=== PATIENT | female | born 1960 | race Caucasian/White ===

== ENCOUNTER 2020-04-24 07:27 | Outpatient (REF) | payer OTHER, SELFPAY ==
--- NOTE | 2020-04-24 07:31 | MM_ITS ---
EXAMINATION: MM SCREENING DIGITAL BREAST TOMOSYNTHESIS, BILATERAL CLINICAL INFORMATION: Screening. Asymptomatic. The lifetime risk of breast cancer based on the Tyrer-Cuzick Model is 5.6%. COMPARISON: Mammography: April 19, 2019 and studies dating back to December 05, 2011 TECHNIQUE: Digital breast tomosynthesis is performed in both the craniocaudal and mediolateral oblique views along with computer-aided detection (CAD). Synthesized 2D images are generated from the tomosynthesis. Exaggerated craniocaudal view left breast also performed. FINDINGS: The breasts are extremely dense, which lowers the sensitivity of mammography (ACR BI-RADS breast composition Category d). There are no significant masses, abnormal calcifications, or other abnormalities. MM/MM tomosynthesis screening BI IMPRESSION: There are no significant changes from prior study. ASSESSMENT: BI-RADS 1: Negative RECOMMENDATION: Routine annual mammography screening. This patient's information was entered into a reminder system with a target due date for their next mammogram.
== END 2020-04-24 07:28 | disposition home or self-care (01) ==
LOC: HO.MAMMO 07:27
PROVIDERS: PCP Internal Medicine; Visit Provider Internal Medicine
DX: Z12.31 Encounter for screening mammogram for malignant neoplasm of breast (principal)
CPT/HCPCS: 77063; 77067

== ENCOUNTER 2020-10-11 21:11 | Emergency (ER) | payer OTHER, SELFPAY ==
[2020-10-11 22:49] VITALS: BP 144/70; PULSE 93; RESP 18; TEMP 36.8; O2SAT 96; BMI 26.9
[2020-10-11 23:06] LABS: Appearance Urine HAZY; Color Urine YELLOW; Glucose Urine UA NEG (NEG); Leukocyte Esterase Urine 3+ (NEG); Nitrite Urine POS (NEG); Specific Gravity - Urine 1.015 (1.005-1.025); UACC Culture Trigger YES; Urine Blood 3+ (NEG); Urine Ketones NEG (NEG); Urine Protein 1+ MG/DL (NEG-TRACE)
[2020-10-11 23:12] LABS: Bacteria Urine 2+ /LPF; RBC Urine 30-49 /HPF (0); Squamous Epithelial Cell Urine 1+ /LPF
--- NOTE | 2020-10-11 23:43 | ED.FEMALEGU ---
HPI - Female Genitourinary General Chief complaint: Urogenital-Female Stated complaint: ?UTI Time Seen by Provider: 10/11/20 23:41 Source: patient Mode of arrival: ambulatory Limitations: no limitations History of Present Illness HPI Narrative: 60-year-old female came in for evaluation of dysuria, urinary frequency time 1 day. Patient declined any fever chills. Patient stated this is typical symptoms for UTI for her. Patient declined any abdominal pain, no nausea, no vomiting. Related Data Previous Rx's Medication Instructions Recorded cefuroxime axetil 500 mg PO Q12H #20 tab 10/11/20 Allergies Allergy/AdvReac Type Severity Reaction Status Date / Time amoxicillin [Amoxicillin] Allergy Intermediate HIVES Unverified 03/18/20 15:16 penicillin V Allergy Unknown hives ? Verified 01/17/19 00:00 prednisone [Prednisone] AdvReac Intermediate ALTERED Unverified 03/18/20 15:16 MENTAL STATUS, confusion Pt states no known allergy to Allergy Unknown Uncoded 01/17/19 00:00 Review of Systems Review of Systems: All other systems are reviewed and are negative Constitutional: Reports as per HPI and Reports no additional constitutional complaints Eyes: Reports as per HPI and Reports no additional eye complaints Reports system reviewed and no additional complaints, except as documented Cardiovascular: Reports as per HPI and Reports no additional cardiovascular complaints Respiratory: Reports as per HPI and Reports no additional respiratory complaints Gastrointestinal: Reports as per HPI and Reports no additional gastrointestinal complaints Genitourinary: Reports no additional female genitourinary complaints Musculoskeletal: Reports no additional musculoskeletal complaints Skin/Breast: Reports system reviewed and no additional complaints, except as docu Psychiatric: Reports no additional psychiatric complaints Endocrine: Reports no additional endocrine complaints Hematologic/Lymphatic: Reports no additional hematologic/lymphatic complaints Allergic/Immunologic: Reports no additional allergic/immunologic complaints Reports system reviewed and no additional complaints, except as documented and Reports Abnormal speech present FOR[facility]LY [facility], [facility] Past Medical History Medical History High cholesterol Patient denies medical problems Physical Exam Vital Signs: Vital Signs: Last Vital Signs Temp 98.3 F 10/11/20 22:49 Pulse 93 10/11/20 22:49 Resp 18 10/11/20 22:49 BP 144/70 H 10/11/20 22:49 Pulse Ox 96 10/11/20 22:49 Body Mass Index 26.9 Vital signs have been reviewed as appeared to be correct. Blood pressure normal. Heart rate normal. Respiration rate normal. Temperature normal. Oxygen saturation normal. Appearance: Alert. Oriented X3. No acute distress. Head: Normal external exam. Normocephalic. Atraumatic. No Calixto signs noted. No raccoon eyes noted Eyes: PERRLA. EOMI. Conjunctiva and sclera normal. Eyelids normal. ENT: TM's Normal. Pharynx normal. Uvula midline. Moist mucous membranes. No trismus noted. No drooling noted. No muffled voice noted. Neck: Normal inspection. Neck supple. FROM. No adenopathy. Thyroid Normal. No meningeal signs. No neck mass noted. CVS: Normal heart rate and rhythm. Heart sound normal. No murmurs noted. Pulses normal throughout. Respiratory: No respiratory distress. Painless inspiration. Breath sounds normal. No wheezes/rales/rhonchi noted. Chest nontender. No accessory muscle usage noted or decreased air movement noted. Abdomen: Soft and nontender. Bowel sounds normal in all 4 quadrants. No distention noted. No organomegaly noted. No visible injury noted. Back: No CVA tenderness. Full range of motion noted. Skin: Skin warm and dry. Normal skin color. Normal skin turgor. No rashes/lesions/lacerations noted. Extremities: No lower extremity edema. Extremities exhibit normal range of motion. Extremities nontender. Neuro: Oriented X 3. No motor deficit. No sensory deficit. Reflexes normal. Course Course Course Narrative: Assessment and plan. Simple noncomplicated UTI. Start the patient on cefuroxime, and encouraged to drink plenty of fluids. MDM - Female Genitourinary Lab Data Attestation: I reviewed the patient's lab results. Labs: Lab Results 10/11/20 Range/Units 22:57 Urine Color YELLOW Urine Appearance HAZY Urine pH 7.0 (5.0-8.0) Ur Specific Central 1.015 (1.005-1.025) Urine Protein 1+ H (NEG-TRACE) MG/DL Urine Glucose (UA) NEG (NEG) MG/DL Urine Ketones NEG (NEG) MG/DL Urine Blood 3+ H (NEG) Urine Nitrite POS H (NEG) Ur Leukocyte Esterase 3+ H (NEG) Urine RBC 30-49 H (0) /HPF Urine WBC 15-29 H (0-4) /HPF Ur Squamous Epith Cells 1+ /LPF Urine Bacteria 2+ /LPF Discharge Plan Discharge Clinical Impression: Urinary tract infection Patient Disposition: Home, Self-Care Instructions: Urinary Tract Infection in Women (ED) Prescriptions: New cefuroxime axetil 500 mg tablet 500 mg PO Q12H Qty: 20 RF: 0 Referrals: Maximilian Avalos MD [Primary Care Provider] - 2 days
== END 2020-10-12 00:40 | disposition home or self-care (01) ==
PROVIDERS: Emergency Provider Emergency Medicine; PCP Internal Medicine
DX: N39.0 Urinary tract infection, site not specified (principal)
CPT/HCPCS: 81001; 81003; 87086; 87088; 87186; 99283; 99284

== ENCOUNTER 2021-04-30 07:26 | Outpatient (REF) | payer OTHER, SELFPAY ==
--- NOTE | ~2021-04-30 | MM_ITS ---
EXAMINATION: MM SCREENING DIGITAL BREAST TOMOSYNTHESIS, BILATERAL CLINICAL INFORMATION: Screening. Asymptomatic. The lifetime risk of breast cancer based on the Tyrer-Cuzick Model is 4%. COMPARISON: Mammography: 04/24/2020, 04/19/2019, 03/15/2018, 02/04/2017 TECHNIQUE: Digital breast tomosynthesis is performed in both the craniocaudal and mediolateral oblique views along with computer-aided detection (CAD). Synthesized 2D images are generated from the tomosynthesis. FINDINGS: The breasts are extremely dense, which lowers the sensitivity of mammography (ACR BI-RADS breast composition Category d). There are no significant masses, abnormal calcifications, or other abnormalities. Parenchymal pattern is similar to prior studies. No significant changes. MM/MM tomosynthesis screening BI IMPRESSION: No mammographic evidence of malignancy. ASSESSMENT: BI-RADS 1: Negative RECOMMENDATION: Routine annual mammography screening. This patient's information was entered into a reminder system with a target due date for their next mammogram.
== END 2021-04-30 07:27 | disposition home or self-care (01) ==
LOC: HO.MAMMO 07:26
PROVIDERS: Visit Provider Internal Medicine
DX: Z12.31 Encounter for screening mammogram for malignant neoplasm of breast (principal)
CPT/HCPCS: 77063; 77067

== ENCOUNTER 2022-05-02 07:31 | Outpatient (REF) | payer OTHER, SELFPAY ==
--- NOTE | ~2022-05-02 | MM_ITS ---
EXAMINATION: MM SCREENING DIGITAL BREAST TOMOSYNTHESIS, BILATERAL CLINICAL INFORMATION: Screening. Asymptomatic. The lifetime risk of breast cancer based on the Tyrer-Cuzick Model is 4.9%. COMPARISON: Mammography: April 30, 2021 and studies dating back to January 18, 2016 TECHNIQUE: Digital breast tomosynthesis is performed in both the craniocaudal and mediolateral oblique views along with computer-aided detection (CAD). Synthesized 2D images are generated from the tomosynthesis. Additional bilateral exaggerated craniocaudal views performed. FINDINGS: The breasts are extremely dense, which lowers the sensitivity of mammography (ACR BI-RADS breast composition Category d). There are no significant masses, abnormal calcifications, or other abnormalities. MM/MM tomosynthesis screening BI IMPRESSION: No significant changes from prior exam. ASSESSMENT: BI-RADS 1: Negative RECOMMENDATION: Routine annual mammography screening. This patient's information was entered into a reminder system with a target due date for their next mammogram.
== END 2022-05-02 07:32 | disposition home or self-care (01) ==
LOC: HO.MAMMO 07:31
PROVIDERS: Visit Provider Internal Medicine
DX: Z12.31 Encounter for screening mammogram for malignant neoplasm of breast (principal)
CPT/HCPCS: 77063; 77067

== ENCOUNTER 2022-10-04 12:29 | Outpatient (REF) | payer OTHER, SELFPAY ==
--- NOTE | ~2022-10-04 | XR_ITS ---
EXAMINATION: XR FOOT, RIGHT CLINICAL INFORMATION: Displaced fracture of the fifth metatarsal COMPARISON: None available. TECHNIQUE: AP, lateral, and oblique views of the right foot. FINDINGS: Mildly displaced and comminuted fracture of the fifth metatarsal diaphysis. No carl bridging bony callus formation. Ankylosis of the second PIP joint. Degenerative changes of the second DIP joint with degenerative spurring. No tibiotalar joint effusion. Achilles tendon enthesopathy. XR/XR foot RT min 3V IMPRESSION: 1. Mildly displaced and comminuted fracture of the fifth metatarsal diaphysis. No carl bridging bony callus formation. 2. Degenerative changes of the foot and ankylosis of the second PIP joint.
== END 2022-10-04 12:30 | disposition home or self-care (01) ==
LOC: HO.HOSX 12:29
PROVIDERS: Visit Provider Physician Assistant
DX: S92.351A Displaced fracture of fifth metatarsal bone, right foot, initial encounter for closed fracture (principal)
CPT/HCPCS: 73630

== ENCOUNTER 2022-11-08 12:48 | Outpatient (REF) | payer OTHER, SELFPAY ==
--- NOTE | ~2022-11-08 | XR_ITS ---
EXAMINATION: XR FOOT, RIGHT CLINICAL INFORMATION: Displaced fifth metatarsal fracture. COMPARISON: Radiographs dated 10/04/2022. TECHNIQUE: AP, lateral, and oblique views of the right foot. FINDINGS: Bony alignment and mineralization are normal. There is stable alignment of a mildly displaced and comminuted fracture of the distal right fifth metatarsal shaft and neck portion. No significant callus formation is seen. There are stable degenerative changes of the second DIP joint, with vigorous spurring. No fracture, dislocation or joint effusion is seen. There is a small posterior calcaneal spur. No focal soft tissue swelling, gas or foreign body is seen. XR/XR foot RT min 3V IMPRESSION: There is stable alignment of a mildly displaced and comminuted fracture of the distal shaft and neck of the right fifth metatarsal. No new callus formation is noted.
== END 2022-11-08 12:49 | disposition home or self-care (01) ==
LOC: HO.HOSX 12:48
PROVIDERS: Visit Provider Physician Assistant
DX: S92.351D Displaced fracture of fifth metatarsal bone, right foot, subsequent encounter for fracture with routine healing (principal)
CPT/HCPCS: 73630

== ENCOUNTER 2022-11-14 06:54 | Outpatient (REF) | payer OTHER, SELFPAY ==
[2022-11-14 08:25] LABS: Alanine Aminotransferase 37 U/L (0-31); Albumin Level 4.4 g/dL (3.5-5.0); Alkaline Phosphatase 82 U/L (39-117); Anion Gap 13 (12-20); Aspartate Amino Transferase 29 U/L (5-31); Bilirubin Total 0.7 mg/dL (0.0-1.0); Blood Urea Nitrogen 13 mg/dL (9-16); Calcium 9.7 mg/dL (8.4-10.2); Carbon Dioxide 24 mmol/L (22-29); Chloride 109 mmol/L (96-108); Cholesterol 219 mg/dL; Estimated Glomerular Filt Rate > 60; Glucose Fasting 132 mg/dL (60-99); HDL Cholesterol 36 mg/dL; LDL Cholesterol Calculated 133 mg/dl; Potassium 4.4 mmol/L (3.3-5.1); Sodium 142 mmol/L (135-145); Total Protein 6.5 g/dL (6.5-8.0); Triglycerides 252 mg/dL
== END 2022-11-14 06:55 | disposition home or self-care (01) ==
LOC: HO.LAB 06:54
PROVIDERS: PCP Internal Medicine; Visit Provider Internal Medicine
DX: E78.2 Mixed hyperlipidemia (principal)
CPT/HCPCS: 36415; 80053; 80061

== ENCOUNTER 2022-12-20 08:27 | Outpatient (REF) | payer OTHER, SELFPAY ==
--- NOTE | ~2022-12-20 | XR_ITS ---
EXAMINATION: XR FOOT, RIGHT CLINICAL INFORMATION: Follow-up fifth metatarsal fracture. COMPARISON: Radiographs dated 11/08/2022. TECHNIQUE: AP, lateral, and oblique views of the right foot. FINDINGS: Bony alignment and mineralization are normal. There is continued stable alignment of a mildly displaced and comminuted fracture of the distal right fifth metatarsal shaft and neck. No significant callus formation is seen. There are moderately severe degenerative changes of the second metatarsophalangeal joint, with spurring. Again, there is fusion of the second proximal interphalangeal joint. No dislocation is seen. There is a small posterior calcaneal spur. No focal soft tissue swelling, gas or foreign body is seen. XR/XR foot RT min 3V IMPRESSION: There is stable alignment of a mildly displaced and comminuted fracture of the right fifth metatarsal distal shaft and neck. No significant new callus formation is noted.
== END 2022-12-20 08:28 | disposition home or self-care (01) ==
LOC: HO.HOSX 08:27
PROVIDERS: Visit Provider Physician Assistant
DX: S92.351D Displaced fracture of fifth metatarsal bone, right foot, subsequent encounter for fracture with routine healing (principal)
CPT/HCPCS: 73630

== ENCOUNTER → 2022-12-22 08:39 | Outpatient (BNVA) | payer OTHER, SELFPAY | PROVIDERS: PCP Internal Medicine; Visit Provider Physician Assistant | DX: M25.551 Pain in right hip (principal); M70.61 Trochanteric bursitis, right hip | CPT/HCPCS: 20610; J1040 ==

== ENCOUNTER 2023-01-09 10:43 | Outpatient (REF) | payer OTHER, SELFPAY ==
[2023-01-16 07:49] LABS: HPV 16 RNA DETECTED (NOT DETECTED); HPV mRNA E6/E7 rflx Detected (Not Detected)
== END 2023-01-09 10:44 | disposition home or self-care (01) ==
LOC: HO.LNP 10:43
PROVIDERS: PCP Internal Medicine; Visit Provider Advanced Practice Midwife
DX: Z01.419 Encounter for gynecological examination (general) (routine) without abnormal findings (principal); Z11.51 Encounter for screening for human papillomavirus (HPV)
CPT/HCPCS: 87624; 87625; 88142

== ENCOUNTER 2023-01-09 10:43 | Outpatient (AMB) | payer OTHER, SELFPAY ==
[2023-01-09 10:50] VITALS: BP 134/80; BMI 30.1
--- NOTE | 2023-01-09 10:50 | A.OFFVIS_ITS ---
Intake Vital Signs 01/09/23 10:50 Height 5 ft 9 in Weight 204 lb BMI 30.1 BP 134/80 Intake Visit Reasons: New Patient Annual Intake Note: Last pap 8-10 yrs normal hx per patient The patient agreed to use of a director biomedical engineering during this encounter. Scribed for ESVIN Cardona by Vannessa Pinzon director biomedical engineering, on 01/09/2023 at 11:08 am EST. Plant And Equipment Worker: Plant And Equipment Worker Present (Rachael) Allergies amoxicillin [Amoxicillin] Allergy (Intermediate, Verified 01/09/23 10:52) HIVES penicillin V Allergy (Unknown, Verified 01/09/23 10:52) hives ? prednisone [Prednisone] Adverse Reaction (Intermediate, Verified 01/09/23 10:52) ALTERED MENTAL STATUS, confusion HPI HPI Comments History of Present Illness Details She is a postmenopausal woman presenting for annual exam. Patient admits she tries to eat a healthy diet, and multivitamins. She stays active with exercise. Currently sexually active. Denies vaginal itching and irritation. STD screening offered; she declines. Denies family hx of breast, colon and ovarian cancer. Last pap smear 8-10 years per pt. Last mammogram 05/02/22. She is cutting down on tobacco use. UTD on colonoscopy. [facility] Medical History Chronic GERD Essential hypertension High cholesterol Surgical History History of blepharoplasty History of hammer toe correction History of tonsillectomy History of umbilical hernia repair Family History Mother Diabetes Hypertension Father Diabetes Brother Lung cancer Brother Cirrhosis of liver Substance use disorder Social History Housing: House Alcohol intake: current Alcohol intake frequency: a few times a month Alcohol type: beer Patient Tobacco Use Status: Current everyday Tobacco user Tobacco use type: Cigarette Cigarette Packs Per Day: 1 Cigarettes Per Day: 15 e-Cigarette/Vaping Use: Never Used Second Hand Smoke Exposure: No service: No Current occupational status: unemployed Current occupational exposures/hazards: No Sexual orientation: Straight/Heterosexual Gender identity: Female Cognitive needs: No Hearing needs: No Vision needs: Yes Female Reproductive History Menstrual Menopause type: natural Age of menopause: 40 Total pregnancies: 2 Full term: 2 Number of Living Children: 2 Date of Mammogram: 05/02/22 Physical Exam Vital Signs: Last Vital Signs BP 134/80 01/09/23 10:50 BMI result Body Mass Index 30.1 Const General: cooperative, healthy appearing, no acute distress, well developed and alert Orientation/consciousness: patient oriented x3 HEENT Head: Yes normal to inspection Eyes General: appearance normal, both eyes and all related structures Neck Neck: Yes normal visual inspection Thyroid: Thyroid normal Chest Chest palpation & inspection: normal inspection of the chest Breast/axilla inspection: normal inspection of the breasts (no puckering, dimpling, peau de orange, retraction, discharge, masses) Breast/axilla palpation: normal palpation of the breasts Resp Effort & Inspection: normal respiratory effort GI Inspection: Yes normal to inspection Palpation (GI): Soft to palpation (to palpation) Rectal Exam - Female: deferred General: Yes bladder normal to inspection External Female Exam: normal external appearance and normal appearance of the urethra Speculum Exam - Vagina: normal appearance of the vagina, normal palpation and vagina atrophic Speculum Exam - Cervix: normal appearance of the cervix, normal palpation and Other cervical findings present (bled slightly with pap) Bimanual exam- vagina & uterus: normal palpation and normal palpation Bimanual Exam- Adnexa, other: normal adnexae and no masses Skin General skin exam: no rashes or lesions noted Neuro General: patient oriented x3 Cognition (Neuro): normal cognition Extrem General: Yes normal to inspection Psych Attitude: cooperative Thought process: Normal thought process present Thought content: Normal thought content present Assessment & Plan Assessment & Plan (1) Encounter for well woman exam: Code(s): Z01.419 - Encounter for gynecological examination (general) (routine) without abnormal findings Plan: Discussed: Current recommendations for pap smears per ASCCP guidelines. Breast awareness and periodic self breast exams. Encouraged yearly mammograms. Maintaining a healthy lifestyle including a well balanced diet including Calcium and Vitamin D and routine exercise. Advised calcium/vit D, consider: Caltrate. Encouraged to cease smoking. Recommend lubricants, and/or Replans-moisturizer, if experience vaginal dryness. Contact office with any PMB. All of her questions and concerns were addressed to the best of my ability. RTO in 1 year for AG. Orders: Orders Pap Smear Today Z01.419 - Encounter for gynecological examination (general) (routine) without abnormal findings Coding Level of Care Code New Pt Prev Care 40-64y(39924) Diagnoses Encounter for well woman exam Z01.419
== END 2023-01-09 11:22 | disposition home or self-care (01) ==
LOC: HO.HWS 10:43
PROVIDERS: PCP Internal Medicine; Visit Provider Advanced Practice Midwife
DX: Z01.419 Encounter for gynecological examination (general) (routine) without abnormal findings (principal)
CPT/HCPCS: 99386

== ENCOUNTER 2023-01-30 07:49 | Outpatient (AMB) | payer OTHER, SELFPAY ==
--- NOTE | 2023-01-30 07:49 | A.OFFVIS_ITS ---
Intake Intake Visit Reasons: pap results Intake Note: cell # [phone] The patient agreed to use of a manager medical during this encounter. Scribed for ESVIN Cardona by Vannessa Pinzon, manager medical, on 01/30/2023 at 7:56 am EST. Allergies amoxicillin [Amoxicillin] Allergy (Intermediate, Verified 01/30/23 07:49) HIVES penicillin V Allergy (Unknown, Verified 01/30/23 07:49) hives ? prednisone [Prednisone] Adverse Reaction (Intermediate, Verified 01/30/23 07:49) ALTERED MENTAL STATUS, confusion HPI HPI Comments History of Present Illness Details D[employer]imity live video 7:56 am- 8:06 am. Phone Call due to Covid-19 Pandemic. Video was utilized. She presents via phone/live video to discuss pap results of abnormal findings. Reports having abnormal pap in the past and provider completed an office procedure years a go that involved a saline wash and scraping of cells. She did not have a follow up pap. She was offered to take estrogen at that time and she declined. [facility] Medical History (Updated 01/30/23 @ 08:06 by Vannessa Pinzon) Abnormal Pap smear of cervix Chronic GERD Essential hypertension High cholesterol Surgical History History of blepharoplasty History of hammer toe correction History of tonsillectomy History of umbilical hernia repair Family History Mother Diabetes Hypertension Father Diabetes Brother Lung cancer Brother Cirrhosis of liver Substance use disorder Social History Housing: House Alcohol intake: current Alcohol intake frequency: a few times a month Alcohol type: beer Patient Tobacco Use Status: Current everyday Tobacco user Tobacco use type: Cigarette Cigarette Packs Per Day: 1 Cigarettes Per Day: 15 e-Cigarette/Vaping Use: Never Used Second Hand Smoke Exposure: No service: No Current occupational status: unemployed Current occupational exposures/hazards: No Sexual orientation: Straight/Heterosexual Gender identity: Female Cognitive needs: No Hearing needs: No Vision needs: Yes Physical Exam Const General: cooperative, healthy appearing, comfortable, no acute distress, well developed, alert and awake Results Reviewed Results Reviewed: Status: DEP REF Collected: 01/09/23 Location: [facility] Received: 01/11/23 Interpretation General Category: Epithelial cell abnormality. Adequacy: ? Endocervical component present. Interpretation:? Atypical squamous cells of undetermined significance, rare. Elevated estrogen for patient's age and history. HPV mRNA E6/E7:? DETECTED This assay detects E6/E7 viral messenger RNA (mRNA) from 14 high-risk HPV types (16, 18, 31, 33, 35, 39, 45, 51, 52, 56, 58, 59, 66, 68) HPV Type 16 RNA:? DETECTED HPV Type 18/45 RNA: ? Not Detected Assessment & Plan Assessment & Plan (1) Encounter to discuss test results: Code(s): Z71.2 - Person consulting for explanation of examination or test findings Plan: Discussed: Pap findings of: ASCUS/HPV+, see above pathology note. Discussed colposcopy purpose, procedure and progression of abnormal pap smear. Offered external referral if desired being an employee here, she declined. Old office records not obtainable from that time frame. All of her questions and concerns were addressed to the best of my ability and shared decision making. She is agreeable to plan of care. Telehealth Telehealth Location of provider rendering services: practice address Location of patient: other Patient Identification confirmed using: Name, : Yes Telehealth method: video Patient verbally consented to treatment: Yes Patient verbally consented to billing insurance company: Yes Patient informed of any privacy concerns related to visit: Yes Coding Level of Care Code Tele New Pt Level 2 (43312) Diagnoses Encounter to discuss test results Z71.2
== END 2023-01-30 08:31 | disposition home or self-care (01) ==
LOC: HO.HWS 07:49
PROVIDERS: PCP Internal Medicine; Visit Provider Advanced Practice Midwife
DX: Z71.2 Person consulting for explanation of examination or test findings (principal)
CPT/HCPCS: 99212

== ENCOUNTER → 2023-01-30 07:49 | Outpatient (BNVA) | payer OTHER, SELFPAY | PROVIDERS: PCP Internal Medicine; Visit Provider Advanced Practice Midwife ==

== ENCOUNTER 2023-02-01 12:00 | Outpatient (RCR) | payer OTHER, SELFPAY ==
--- NOTE | 2023-01-04 16:20 | MHC.PT.EP ---
[facility] [place] [facility] [place] Office [address] [phone] F: [phone] F: [phone] F: [phone] F: [phone] Physical Therapy Plan of Care Date of Evaluation: Date of Surgery: Diagnosis: RIGHT hip trochanteric bursitis Assessment: Patient is a pleasant 62 y.o. female who is referred to PT by Jean-Claude Brooks PA-C, with Dx of RIGHT hip trochanteric bursitis. She had an injection to R hip which alleviated familiar pain, but with use of CAM boot on R with antalgic gait she started to develop pain in medial L knee which bothers her the most today. Patient impairments include pain, weakness, antalgic gait. Patient current functional limitations are getting up sit to stand, stair use, gardening, kneeling. Patient will benefit from skilled PT to address aforementioned impairments and functional limitations to meet established goals. Frequency and Duration: The patient will be seen 2x/weeks for 4 weeks Short Term Goals: 2 weeks Patient demonstrates consistency and independence with HEP to self manage symptoms. Patient is able to utilize taping to patella to improve alignment and reduce pain. Intermediate Goals: 4 weeks Patient presents with increased bilateral glute med strength 5/5 to be able to ascend/descend 2 flights of stairs reciprocally. Treatment Plan: Modalities to reduce pain, spasms and effusion. Manual therapy to restore motion and function. Therapeutic exercise to improve strength and flexibility. Neuromuscular re-education for posture and balance. Therapeutic activities to return to functional activities of daily living. Electronically signed by: Umberto Whipple, PT, DPT Please sign and return to therapist. Thank you for your referral.
--- NOTE | 2023-03-30 11:33 | MHC.PT.DC ---
[facility] [place] Office [place] Office [place] Office [address] Ava Martinez [address] [facility] [phone] F: [phone] F: [phone] F: [phone] F: [phone] Physical Therapy Discharge Report Diagnosis: RIGHT hip trochanteric bursitis Date of Surgery: Date of Evaluation: 01/04/23 Date of Discharge: 02/01/23 Treatments to Date: 7 Cancellations to Date: No Shows to Date: Discharge Status: Improved Function Independent with HEP Discharge Summary: Eunice did well with physical therapy interventions and showed independence with HEP to self manage her symptoms. She ceased attending PT on her own accord and is discharged from PT at this time. Electronically signed by: Umberto Whipple, PT, DPT Please sign and return to therapist. Thank you for your referral.
== END 2023-03-30 11:34 | disposition home or self-care (01) ==
LOC: HO.PT 12:00
PROVIDERS: PCP Internal Medicine; Visit Provider Physician Assistant
DX: M70.61 Trochanteric bursitis, right hip (principal)
CPT/HCPCS: 97110; 97112; 97140; 97161; 97530

== ENCOUNTER 2023-03-20 12:02 | Outpatient (REF) | payer OTHER, SELFPAY | END 2023-03-20 12:03 | disposition home or self-care (01) | LOC: HO.LNP 12:02 | PROVIDERS: PCP Internal Medicine; Visit Provider Obstetrics & Gynecology | DX: R87.610 Atypical squamous cells of undetermined significance on cytologic smear of cervix (ASC-US) (principal); R87.810 Cervical high risk human papillomavirus (HPV) DNA test positive | CPT/HCPCS: 57454; 88305; 88342; 88360 ==

== ENCOUNTER 2023-03-20 12:02 | Outpatient (AMB) | payer OTHER, SELFPAY ==
--- NOTE | 2023-03-20 12:04 | MHC.OFFVIS ---
Intake Vital Signs 03/20/23 12:09 Height 5 ft 9 in Weight 202 lb 13.204 oz BMI 29.9 BP 110/80 Intake Visit Reasons: Colposcopy Vmware Administrator Required: No Information Interpreted: non-clinical & clinical Delivery Crew Member: Delivery Crew Member Present (Elyssa Wan NAIK) Accompanied by: Self / Same As Patient Allergies amoxicillin [Amoxicillin] Allergy (Intermediate, Verified 03/20/23 12:10) HIVES penicillin V Allergy (Unknown, Verified 03/20/23 12:10) hives ? prednisone [Prednisone] Adverse Reaction (Intermediate, Verified 03/20/23 12:10) ALTERED MENTAL STATUS, confusion Post menopausal: Yes [facility] Medical History (Updated 03/20/23 @ 12:21 by Mike Saunders MD) Abnormal Pap smear of cervix Essential hypertension Chronic GERD High cholesterol Surgical History History of tonsillectomy History of blepharoplasty History of umbilical hernia repair History of hammer toe correction Family History Mother Diabetes Hypertension Father Diabetes Brother Lung cancer Brother Cirrhosis of liver Substance use disorder Social History Housing: House Alcohol intake: current Alcohol intake frequency: a few times a month Alcohol type: beer Patient Tobacco Use Status: Current everyday Tobacco user Tobacco use type: Cigarette Cigarette Packs Per Day: 1 Cigarettes Per Day: 15 e-Cigarette/Vaping Use: Never Used Second Hand Smoke Exposure: No service: No Current occupational status: unemployed Current occupational exposures/hazards: No Sexual orientation: Straight/Heterosexual Gender identity: Female Cognitive needs: No Hearing needs: No Vision needs: Yes Office Procedures Colposcopy Before the procedure was started discussed with the patient the procedure, alternatives & all the risks associated with the procedure (bleeding, infection, injury to vagina, bladder, vessels, possible need for transfusion with all its risks) then patient signed the consent UPT done in the office & negative Pap smear = ascus/HPV positive/HPV 16 positive Speculum inserted, acetic acid used Colposcopy done Transformation zone seen, acetowhite lesions identified at 4+6+8+11+12+1+3 o?clock, cervical biopsies taken from 4+6+8+11+12+1+3 o?clock, ECC done afterwards. Vaginoscopy of the upper vagina showed no evidence of any aceto-white lesions Monsel solution used for hemostasis. The patient tolerated well . At the end the patient was instructed to call if temp>100.4, abdominal pain, n/v, bleeding; The patient was given the following instructions: nothing per vagina, no intercourse or bath tub use. All questions answered the patient verbalized understanding. Instructed the patient to make an appointment in 2 weeks for follow-up This note was generated with a voice recognition program. Some errors may have been overlooked during the review of this note. Sometimes these errors may affect the content or meaning of a given sentence. [id number] of cervix including upper vagina with biopsy and ECC Procedure code (CPT) selection complete Assessment & Plan Assessment & Plan Orders: Orders AMB Colposcopy Today R87.610 - Atypical squamous cells of undetermined significance on cytologic smear of cervix (ASC-US), R87.810 - Cervical high risk human papillomavirus (HPV) DNA test positive Coding Level of Care Code Procedure Only CPT Codes Colposcopy - CPT: 28959-[id number] of cervix including upper vagina with biopsy and ECC ([id number])
[2023-03-20 12:09] VITALS: BP 110/80; BMI 29.9
== END 2023-03-20 12:22 | disposition home or self-care (01) ==
PROVIDERS: PCP Internal Medicine; Visit Provider Obstetrics & Gynecology
DX: R87.610 Atypical squamous cells of undetermined significance on cytologic smear of cervix (ASC-US) (principal); R87.810 Cervical high risk human papillomavirus (HPV) DNA test positive
CPT/HCPCS: 57454

== ENCOUNTER 2023-03-29 14:52 | Outpatient (AMB) | payer OTHER, SELFPAY ==
--- NOTE | 2023-03-29 14:55 | A.OFFVIS_ITS ---
Intake Vital Signs 03/29/23 14:59 Height 5 ft 9 in Weight 202 lb 13.204 oz BMI 29.9 BP 126/80 Intake Visit Reasons: COLPO results per Office Assistance Required: No Information Interpreted: non-clinical & clinical Nanoscience Technician: Nanoscience Technician Present Accompanied by: Self / Same As Patient Allergies amoxicillin [Amoxicillin] Allergy (Intermediate, Verified 03/29/23 14:59) HIVES penicillin V Allergy (Unknown, Verified 03/29/23 14:59) hives ? prednisone [Prednisone] Adverse Reaction (Intermediate, Verified 03/29/23 14:59) ALTERED MENTAL STATUS, confusion Is last menstrual period known: Yes Last menstrual period: 04/29/20 Post menopausal: Yes Patient : No Do you need a note to return to daycare/school/sports/work: Yes (for surgery on sunday) HPI HPI Comments History of Present Illness Details Presenting post colpo for follow-up. The patient is doing well with no complaints. The pathology showed the following: A. Endocervix, curettage: Scant superficial strips of endocervical epithelium within normal limits; mucoinflammatory material. B. Cervix, 1 o'clock, biopsy: Inflamed cervical transformation zone mucosa with reactive changes. C. Cervix, 3 o'clock, biopsy: - High-grade squamous intraepithelial le kurt (MINAL 3). - Background inflamed cervical transform ation zone mucosa. D. Cervix, 4 o'clock, biopsy: Inflamed endocervical tissue with squamous metaplasia; mucoinflammatory material. E. Cervix, 6 o'clock, biopsy: Inflamed cervical transformation zone mucosa with reactive changes. F. Cervix, 8 o'clock, biopsy: Mildly inflamed endocervical and squamous mucosa with reactive changes. G. Cervix, 11 o'clock, biopsy: Inflamed cervical transformation zone mucosa with reactive changes. H. Cervix, 12 o'clock, biopsy: - High-grade squamous intraepithelial le kurt (MINAL 3). - Background inflamed cervical transform ation zone mucosa [facility] Medical History Abnormal Pap smear of cervix Essential hypertension Chronic GERD High cholesterol Surgical History History of tonsillectomy History of blepharoplasty History of umbilical hernia repair History of hammer toe correction Family History Mother Diabetes Hypertension Father Diabetes Brother Lung cancer Brother Cirrhosis of liver Substance use disorder Social History Housing: House Alcohol intake: current Alcohol intake frequency: a few times a month Alcohol type: beer Patient Tobacco Use Status: Current everyday Tobacco user Tobacco use type: Cigarette Cigarette Packs Per Day: 1 Cigarettes Per Day: 15 e-Cigarette/Vaping Use: Never Used Second Hand Smoke Exposure: No service: No Current occupational status: unemployed Current occupational exposures/hazards: No Sexual orientation: Straight/Heterosexual Gender identity: Female Cognitive needs: No Hearing needs: No Vision needs: Yes Female Reproductive History Menstrual Date of last menstrual period: 04/29/20 Total pregnancies: 2 Full term: 2 Review of Systems Card Reports as per HPI and Reports no additional complaints Resp Reports as per HPI and Reports no additional complaints GI Reports as per HPI and Reports no additional complaints Reports as per HPI Physical Exam Vital Signs: Last Vital Signs BP 126/80 03/29/23 14:59 BMI result Body Mass Index 29.9 Const General: cooperative, healthy appearing and comfortable Chest Chest palpation & inspection: normal inspection of the chest and normal palpation of entire chest wall Breast/axilla inspection: normal inspection of the breasts and normal inspection of the axillae Breast/axilla palpation: normal palpation of the breasts, normal palpation of the axillae and no axillary lymphadenopathy Resp Effort & Inspection: normal respiratory effort Auscultation: clear to auscultation bilaterally Percussion: percussion normal Cardio Palpation: normal PMI Rate: regular rate Rhythm: regular rhythm Heart sounds: no murmurs and no rubs Peripheral pulses: Peripheral pulses 2+ throughout GI Inspection: Yes normal to inspection Palpation (GI): Soft to palpation, nontender, no guarding, not rigid and No hepatosplenomegaly present Percussion: Yes normal to percussion Auscultation: normal bowel sounds Rectal Exam - Female: deferred Assessment & Plan Assessment & Plan (1) MINAL III (cervical intraepithelial neoplasia grade III) with severe dysplasia: Code(s): D06.9 - Carcinoma in situ of cervix, unspecified Plan: Discussed with the patient the pathology results of the colposcopy biopsies & endocervical curettage ( severe dysplasia-MINAL 3). Discussed with the patient the sensitivity specificity, positive and negative predictive value in detecting cervical cancer in addition discussed the regression, persistence and progression rates. Addition discussed with the patient the risk of progression to cancer . Recommended excisional procedures, LEEP cone with post cone ECC. Discussed with the patient the procedure, its benefits and risks including bleeding, infection, possible need for blood transfusion with all its risk ( HIV, syphilis, Hepatitis, anaphylaxis shock, others..), injury to bladder, rectum, possible need for re-excision or hysterectomy for positive margins, potential need for hysterectomy. Also discussed the patient options of anesthesia either paracervical block versus IV sedation/MAC, prefers to proceed with IV sedation/MAC . All questions answered, the patient verbalized understanding and signed the consent. Instructions given to patient to schedule a postop appointment. Coding Level of Care Code Est Pt Level 3 (92511) Diagnoses MINAL III (cervical intraepithelial neoplasia grade III) with severe dysplasia D06.9
[2023-03-29 14:59] VITALS: BP 126/80; BMI 29.9
== END 2023-03-29 15:39 | disposition home or self-care (01) ==
PROVIDERS: PCP Internal Medicine; Visit Provider Obstetrics & Gynecology
DX: D06.9 Carcinoma in situ of cervix, unspecified (principal)
CPT/HCPCS: 99213

== ENCOUNTER → 2023-03-29 14:52 | Outpatient (BNVA) | payer OTHER, SELFPAY | PROVIDERS: PCP Internal Medicine; Visit Provider Obstetrics & Gynecology ==

== ENCOUNTER 2023-04-06 10:54 | Day surgery (SDC) | payer OTHER, SELFPAY ==
[2023-04-06 11:22] VITALS: BMI 28.8
[2023-04-06 11:37] VITALS: BP 147/81; PULSE 89; RESP 18; TEMP 36.6; O2SAT 97
--- NOTE | 2023-04-06 12:07 | MHC.SHP ---
Pre-Procedural Eval Section A Date of Service: 04/06/23 The patient is an INPATIENT: No Changes since office visit: No Cold of Flu in the past 2 weeks, No New Medical Problems, No Changes in Medication and No Patient answered all questions The History & Physical has been completed within 30 days and I have reviewed it.: Yes Section B Chief Complaint: Carcinoma in situ of cervix, unspecified Allergies: Allergies Allergy/AdvReac Type Severity Reaction Status Date / Time amoxicillin [Amoxicillin] Allergy Intermediate HIVES Verified 03/29/23 14:59 penicillin V Allergy Unknown hives ? Verified 03/29/23 14:59 prednisone [Prednisone] AdvReac Intermediate ALTERED Verified 03/29/23 14:59 MENTAL STATUS, confusion Plan Diagnosis/Plan: Unchanged I have reviewed the history and physical and performed a pertinent physical examination on my patient. No changes have occurred unless specified. Time Spent With Patient Time: Total time managing care of this patient today ____ minutes.
--- NOTE | 2023-04-06 12:13 | HO.ANESPROP2 ---
HPI - Anesthesia Eval Consult details Narrative: for LEEP PMFSH Active Problems Active Problems: All Active Problems (Updated 03/29/23 @ 15:37 by Mike Saunders MD) MINAL III (cervical intraepithelial neoplasia grade III) with severe dysplasia (Acute) ASCUS with positive high risk HPV cervical (Acute) Abnormal Pap smear of cervix (Acute) Chronic GERD (Acute) Essential hypertension (Acute) Trochanteric bursitis, right hip (Acute) Hyperlipidemia (Acute) Impaired glucose tolerance (Acute) Fracture of fifth metatarsal bone (Acute) Smoker (Acute) Elevated blood pressure reading without diagnosis of hypertension (Acute) Screening for cervical cancer (Acute) Overweight (Acute) Tubular adenoma (Acute) Mixed hyperlipidemia (Acute) Past Medical History Medical History Abnormal Pap smear of cervix Essential hypertension Chronic GERD High cholesterol Family History Family History Mother Diabetes Hypertension Father Diabetes Brother Lung cancer Brother Cirrhosis of liver Substance use disorder Family history of problems with anesthesia: No Surgical History Surgical History History of tonsillectomy History of blepharoplasty History of umbilical hernia repair History of hammer toe correction History of Problems with Anesthesia: No Social History Social History Housing: House Alcohol intake: current Alcohol intake frequency: a few times a month Alcohol type: beer Patient Tobacco Use Status: Current everyday Tobacco user Tobacco use type: Cigarette Cigarette Packs Per Day: 1 Cigarettes Per Day: 15 Smoked in Last 30 Days: Yes e-Cigarette/Vaping Use: Never Used Patient Interested in Nicotine Replacement: No Second Hand Smoke Exposure: No Are you DNR?: No Advance Directives: No Advance Directives Information Provided: Yes Nutrition Risks: No Nutritional Risk service: No Current occupational status: unemployed Current occupational exposures/hazards: No Sexual orientation: Straight/Heterosexual Gender identity: Female Cognitive needs: No Hearing needs: No Vision needs: Yes Meds Allergies Allergy/AdvReac Type Severity Reaction Status Date / Time amoxicillin [Amoxicillin] Allergy Intermediate HIVES Verified 03/29/23 14:59 penicillin V Allergy Unknown hives ? Verified 03/29/23 14:59 prednisone [Prednisone] AdvReac Intermediate ALTERED Verified 03/29/23 14:59 MENTAL STATUS, confusion Active Medications: Current Medications Lactated Ringer's (Lr) 1,000 mls @ 80 mls/hr IVCONT .[id number] JAN Last Admin: 04/06/23 11:38 Dose: 80 mls/hr Home Medications Medication Instructions Recorded Confirmed Last Taken Type omeprazole 20 mg capsule,delayed 20 mg PO DAILY 08/24/22 04/06/23 Unknown History release Exam Exam Date and Time: April 06, 2023 1213 Height,Weight and Vital Signs: Height 5 ft 9 in Weight 88.451 kg Last Vital Signs Temp 97.9 F 04/06/23 11:37 Pulse 89 04/06/23 11:37 Resp 18 04/06/23 11:37 BP 147/81 H 04/06/23 11:37 Pulse Ox 97 04/06/23 11:37 O2 Del Method Room Air 04/06/23 11:37 Airway Mallampati Class: II TM Dist: <=3cm Neck ROM: Full Loose/Missing/Broken Teeth: No Heart: ok Lungs: ok Assessment and Plan Assessment Anesthesia Assessment: Anesthesia Plan Discussed and Chart Reviewed Final Anesthetic Review Family History of Problems with Anesthesia: No History of Problems with Anesthesia: No NPO: Yes ASA Class: II Final Preanesthetic Review: No Changes in Pt Med Stat, Meds/Allgs Chart Reviewed, Consent Obtained/Reviewed and Anes Risks/Benef Reviewed Patient Risk: Low Procedure Risk: Low Anesthetic Plan Anesthetic Plan: GA and Agree w/ Assess. and Plan Disposition: Standard PACU
--- NOTE | 2023-04-06 13:08 | PM.OP ---
Brief Operative Note Date of Service: 04/06/23 Pre-op diagnosis: MINAL 3 Post-op diagnosis: same Procedure: LEEP CONE with post CONE ECC Surgeon: Mike Saunders MD Anesthesia: GLMA and other (Paracervical block) Was an Outside Collector used for this Procedure?: No Estimated blood loss (mL): 0 Pathology: other (Cervical cone, top-hat, Post cone ECC) Condition: stable Disposition: other (Home)
--- NOTE | 2023-04-06 13:08 | W.PM.OPN ---
Operative Note Operative Note Date of Service: 04/06/23 Narrative: Pre op diagnosis: MINAL 3 Operation: Colposcopy, Loop electrical excision procedure cone, top hat endocervical excision, post cone ECC Postop diagnosis: the same Quantitative blood loss: Minimal cc Surgeon: Mike Saunders MD, FACOG Skill Labor: None Pathology: Cervical cone, top-hat endo cervical excision, endo cervical curettage Complications: none Anesthesia: GLMA and Para cervical block Procedure: The patient was put in a dorsal lithotomy position, scrubbed and draped in the usual sterile fashion. A speculum was inserted inside the patient's vagina. The cervix is assessed using the colposcope with acetic acid , the lesions were seen, and at least 1 cm of the squamocolumnar junction was observed. 20 x 5 mm size loop was selected based upon the diameter of the lesion. Lugol solution was used to outline the lesions and area of the transformation zone order to be removed 10 cc of xylocaine with epinephrine were injected submucosally into the surface of the cervix (ectocervix) at the 3, 6, 9, and 12 o'clock positions. The electrosurgical generator is set at 30 to 40 gallo on blend 1. The loop is carefully passed simultaneously around and under the transformation zone, in order to ensure excising it making sure the lesion is at least 5 mm far from the specimen margins . The loop was allowed to glide through the cervix from one side to the other, allowing the cutting current to divide the tissue.; additional tissues were excised from this area with a smaller-diameter loop , endo cervical top-hat excision was performed peer An endo cervical curettage is performed following completion of excision, and hemostasis is obtained with a Ball electrode or regular tip cautery. At the end, Monsel's solution was applied to the cone bed. The patient tolerated the procedure well and, all instruments were taken out of the patient vaginal cavity, and the patient was transferred to the PACU in stable condition.
[2023-04-06 13:15] VITALS: BP 150/76; PULSE 84; RESP 16; TEMP 36.5; O2SAT 92
[2023-04-06 13:20] VITALS: BP 142/75; PULSE 75; RESP 16; O2SAT 97
[2023-04-06 13:25] VITALS: BP 132/68; PULSE 83; RESP 16; O2SAT 98
[2023-04-06 13:30] VITALS: BP 143/70; PULSE 71; RESP 18; TEMP 36.8; O2SAT 98
== END 2023-04-06 13:57 | disposition home or self-care (01) ==
PROVIDERS: PCP Internal Medicine; Visit Provider Obstetrics & Gynecology
PROC: 0UBC7ZZ Excision of Cervix, Via Natural or Artificial Opening (ICD-10-PCS; CPT 57522; principal; 2023-04-06 12:30)
DX: D06.9 Carcinoma in situ of cervix, unspecified (principal); I10 Essential (primary) hypertension; E78.00 Pure hypercholesterolemia, unspecified; K21.9 Gastro-esophageal reflux disease without esophagitis; Z88.0 Allergy status to penicillin; Z88.1 Allergy status to other antibiotic agents; Z88.8 Allergy status to other drugs, medicaments and biological substances; F17.210 Nicotine dependence, cigarettes, uncomplicated
CPT/HCPCS: 57461; 88305; 88307; J1885; J2405; J3010

== ENCOUNTER → 2023-04-06 10:54 | Outpatient (BNV) | payer OTHER, SELFPAY | PROVIDERS: PCP Internal Medicine; Visit Provider Obstetrics & Gynecology | DX: D06.9 Carcinoma in situ of cervix, unspecified (principal) | CPT/HCPCS: 57522 ==

== ENCOUNTER 2023-04-18 13:44 | Outpatient (AMB) | payer OTHER, SELFPAY ==
--- NOTE | 2023-04-18 13:50 | MHC.OFFVIS ---
Intake Vital Signs 04/18/23 13:52 BP 118/70 Intake Visit Reasons: post op Allergies amoxicillin [Amoxicillin] Allergy (Intermediate, Verified 03/29/23 14:59) HIVES penicillin V Allergy (Unknown, Verified 03/29/23 14:59) hives ? prednisone [Prednisone] Adverse Reaction (Intermediate, Verified 03/29/23 14:59) ALTERED MENTAL STATUS, confusion HPI HPI Comments History of Present Illness Details The patient is presenting for follow-up post LEEP cone. The patient has no complaints. The pathology showed the following: A. Cervix, cone, excision: - High-grade squamous intraepithelial lesion (MINAL 3), extending to endocervical margin. - Endocervical epithelium within normal limits. B. Cervix, top hat, excision: Mildly inflamed endocervical and squamous mucosa; no atypia identified. C. Endocervix, post cone, curettage: Scant superficial strips of endocervical epithelium within normal limits; mucoinflammatory material. [facility] Medical History Abnormal Pap smear of cervix Essential hypertension Chronic GERD High cholesterol Surgical History History of tonsillectomy History of blepharoplasty History of umbilical hernia repair History of hammer toe correction Family History Mother Diabetes Hypertension Father Diabetes Brother Lung cancer Brother Cirrhosis of liver Substance use disorder Social History Housing: House Alcohol intake: current Alcohol intake frequency: a few times a month Alcohol type: beer Patient Tobacco Use Status: Current everyday Tobacco user Tobacco use type: Cigarette Cigarette Packs Per Day: 1 Cigarettes Per Day: 15 e-Cigarette/Vaping Use: Never Used Second Hand Smoke Exposure: No service: No Current occupational status: unemployed Current occupational exposures/hazards: No Sexual orientation: Straight/Heterosexual Gender identity: Female Cognitive needs: No Hearing needs: No Vision needs: Yes Assessment & Plan Assessment & Plan (1) MINAL III (cervical intraepithelial neoplasia grade III) with severe dysplasia: Code(s): D06.9 - Carcinoma in situ of cervix, unspecified Plan: Discussed with the patient the procedure and the pathology with + endocervical margins, followed by negative top-hat excision and negative post cone ECC. Discussed with the patient ASCCP treatment options include not limited to: either repeat LEEP versus hysterectomy versus 6 months follow-up with HPV based screening with colpo biopsy and ECC q 6 months. All the pros and cons risks benefits of each approach were discussed the patient and the patient decided to proceed with 6 months HPV based screening with colposcopy biopsy and ECC. Instructions given the patient to schedule his 6 month follow-up with co testing/colpo. All questions were answered, the patient verbalized understanding. Coding Level of Care Code Est Pt Level 3 (39572) Diagnoses MINAL III (cervical intraepithelial neoplasia grade III) with severe dysplasia D06.9
[2023-04-18 13:52] VITALS: BP 118/70
== END 2023-04-18 14:11 | disposition home or self-care (01) ==
PROVIDERS: PCP Internal Medicine; Visit Provider Obstetrics & Gynecology
DX: D06.9 Carcinoma in situ of cervix, unspecified (principal)
CPT/HCPCS: 99024

== ENCOUNTER → 2023-04-18 13:44 | Outpatient (BNVA) | payer OTHER, SELFPAY | PROVIDERS: PCP Internal Medicine; Visit Provider Obstetrics & Gynecology ==

== ENCOUNTER 2023-05-09 07:27 | Outpatient (REF) | payer OTHER, SELFPAY | END 2023-05-09 07:28 | disposition home or self-care (01) | LOC: HO.MAMMO 07:27 | PROVIDERS: PCP Internal Medicine; Visit Provider Internal Medicine | DX: Z12.31 Encounter for screening mammogram for malignant neoplasm of breast (principal) | CPT/HCPCS: 77063; 77067 ==

== ENCOUNTER → 2023-05-09 07:30 | Outpatient (BNV) | payer OTHER, SELFPAY | PROVIDERS: PCP Internal Medicine; Visit Provider Radiology Diagnostic Radiology | DX: Z12.31 Encounter for screening mammogram for malignant neoplasm of breast (principal) | CPT/HCPCS: 77063; 77067 ==

== ENCOUNTER 2023-06-01 10:56 | Outpatient (AMB) | payer MEDICARE, OTHER, SELFPAY ==
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
== END 2023-06-01 11:30 | disposition home or self-care (01) ==
PROVIDERS: PCP Internal Medicine; Visit Provider Physician Assistant
DX: M76.71 Peroneal tendinitis, right leg (principal)
CPT/HCPCS: 99213

== ENCOUNTER → 2023-06-01 10:56 | Outpatient (BNVA) | payer OTHER, SELFPAY | PROVIDERS: PCP Internal Medicine; Visit Provider Physician Assistant ==

== ENCOUNTER 2023-06-26 12:53 | Outpatient (REF) | payer MEDICARE, OTHER, SELFPAY ==
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
== END 2023-06-26 12:54 | disposition home or self-care (01) ==
LOC: HO.MRI 12:53
PROVIDERS: Visit Provider Physician Assistant
DX: M76.71 Peroneal tendinitis, right leg (principal)
CPT/HCPCS: 73721

== ENCOUNTER 2023-07-17 08:44 | Outpatient (REF) | payer MEDICARE, SELFPAY | END 2023-07-17 08:45 | disposition home or self-care (01) | LOC: HO.LNP 08:44 | PROVIDERS: PCP Internal Medicine; Visit Provider Obstetrics & Gynecology | DX: Z13.89 Encounter for screening for other disorder (principal) | CPT/HCPCS: 88305 ==

== ENCOUNTER 2023-07-17 08:44 | Outpatient (AMB) | payer MEDICARE, SELFPAY ==
--- NOTE | 2023-07-17 08:47 | A.OFFVIS_ITS ---
Intake Vital Signs 07/17/23 08:49 Height 5 ft 9 in Weight 201 lb BMI 29.7 BP 130/80 Intake Visit Reasons: vaginal bleeding Allergies amoxicillin [Amoxicillin] Allergy (Intermediate, Verified 06/01/23 11:12) HIVES penicillin V Allergy (Unknown, Verified 06/01/23 11:12) hives ? prednisone [Prednisone] Adverse Reaction (Intermediate, Verified 06/01/23 11:12) ALTERED MENTAL STATUS, confusion HPI HPI Comments History of Present Illness Details Presenting after an episode of light vaginal bleeding today. Pelvic ultrasound done today showed the following: IMPRESSION: 1. Thickened endometrium for postmenopa usal woman. HEAD SCORER consult should be considered. 2. 3.5 cm complex cyst in the left adne xa with 2.6 cm adjacent complex cyst. This raises concern for low-grade cystic neoplasm. Either HEAD SCORER consult and follow-up ultrasound in 3-6 months or MRI with IV contrast for improved characterization should be considered. 3. 0.7 cm cluster of calcifications in the uterine fundus may represent a degenerating fibroid. 4. The right ovary is not seen. [facility] Medical History Abnormal Pap smear of cervix Essential hypertension Chronic GERD High cholesterol Surgical History History of tonsillectomy History of blepharoplasty History of umbilical hernia repair History of hammer toe correction Family History Mother Diabetes Hypertension Father Diabetes Brother Lung cancer Brother Cirrhosis of liver Substance use disorder Social History Housing: House Alcohol intake: current Alcohol intake frequency: a few times a month Alcohol type: beer Patient Tobacco Use Status: Current everyday Tobacco user Tobacco use type: Cigarette Cigarette Packs Per Day: 1 Cigarettes Per Day: 15 e-Cigarette/Vaping Use: Never Used Second Hand Smoke Exposure: No service: No Current occupational status: unemployed Current occupational exposures/hazards: No Sexual orientation: Straight/Heterosexual Gender identity: Female Cognitive needs: No Hearing needs: No Vision needs: Yes Review of Systems Const All systems reviewed & are unremarkable except as noted in HPI and below Physical Exam Vital Signs: Last Vital Signs BP 130/80 07/17/23 08:49 BMI result Body Mass Index 29.7 General: Yes no CVA tenderness External Female Exam: normal external appearance and normal appearance of the urethra Speculum Exam - Vagina: normal appearance of the vagina, normal palpation, no lesions and no masses Speculum Exam - Cervix: normal appearance of the cervix, normal palpation, no lesions, no masses and nontender Bimanual exam- vagina & uterus: normal bimanual exam, normal palpation, uterine size normal, normal palpation, uterine shape normal, No Cervical tenderness present and non-tender Bimanual Exam- Adnexa, other: normal adnexae Back/Spine/Pelvis Back: no CVA tenderness Office Procedures Endometrial Biopsy Details: The patient was counseled regarding the indication and benefits of endometrial sampling to rule out endometrial pathology including not limited to endometrial hyperplasia or endometrial cancer and others; The alternatives (Either do nothing vs. hysteroscopy D&C) & the risks were discussed with the patient including but not limited: pain, uterine perforation, bleeding, infection, possible injury to bladder, bowel, ureter, possible need for blood transfusion with all its possible risks. The patient verbalized understanding all questions answered and signed consent. The patient was placed into the dorsal lithotomy position; a speculum was inserted in the vagina. Using aseptic technique for the procedure, the cervix was cleansed with Betadine. The anterior lip of the cervix was grasped with a single tooth tenaculum. The uterus was sounded to 5 cm with a 4 mm Pipelle was used. Tissues samples were obtained and placed in formalin, in a patient labeled container and sent to the pathology department. Endocervical curettage was done afterwards. At the end of the procedure, there was minimal bleeding noted The patient tolerated the procedure well and was discharged in good condition with the following instructions: Nothing in the vagina until the bleeding stops. No sex until the bleeding stops, to call if any of the following occurs: fever (>100.4), flu-like symptoms, abdominal pain, heavy bleeding, four smelling vaginal discharge. The patient was instructed to schedule a Follow up appointment in 2 weeks to discuss pathology results of the biopsy and treatment options. This note was generated with a voice recognition program. Some errors may have been overlooked during the review of this note. Sometimes these errors may affect the content or meaning of a given sentence. [id number] Biopsy Assessment & Plan Assessment & Plan (1) Postmenopausal bleeding: Comment: History of MINAL 3 status post LEEP cone with post cone ECC in 04/20 positive endocervical margin negative top-hat excision pathology Thickened endometrium by ultrasound Code(s): N95.0 - Postmenopausal bleeding Plan: Discussed with the patient the differential diagnosis of post menopausal bleeding with normal pelvic exam including but not limited to, endometrial hyperplasia, cancer, polyps and other causes; Discussed with the patient the pelvic ultrasound findings, the endometrial stripe thickenss measured by ultrasound was more than 4mm. The negative predictive value, positive predictive value, Sensitivity, specificity of using ultrasound measurement of endometrial stripe to detecting endometrial pathology including hyperplasia , polyp or cancer were discussed with the patient. Recommended to the patient that the next step is an endometrial sampling to rule out endometrial pathology , EMB with ECC done see procedure note. Instructions given the patient to schedule a follow-up appointment within 2 weeks (2) Complex ovarian cyst: Code(s): N83.299 - Other ovarian cyst, unspecified side Plan: Discussed with the patient the complex ovarian cyst by ultrasound. Discussed with the patient the Ultrasound findings, the main limitation of transvaginal ultrasonography alone as a diagnostic tool to distinguish benign from malignant masses relates to its lack of specificity and low positive predictive value for cancer. The differential diagnosis discussed with the patient includes the following but not limited to: benign and malignant gynecological and non-gynecological causes. Will order CA 125, CA 19-9, CEA and pelvic MRI . Instructions given the patient to schedule a 2 week MRI follow-up appointment Orders: Orders US pelvic and transvaginal Today N95.0 - Postmenopausal bleeding MR pelvis wo/w con Today N83.299 - Other ovarian cyst, unspecified side CA-125 Today N83.299 - Other ovarian cyst, unspecified side Carcinoembryonic Antigen Today N83.299 - Other ovarian cyst, unspecified side Carbohydrate Antigen 19-9 Today N83.299 - Other ovarian cyst, unspecified side Surgical Today N95.0 - Postmenopausal bleeding AMB Endometrial Biopsy Today N95.0 - Postmenopausal bleeding Coding Level of Care Code Est Pt Level 3 (17862) Procedure Only Diagnoses Postmenopausal bleeding N95.0 Complex ovarian cyst N83.299 CPT Codes Endometrial Biopsy - CPT: 03938-Tddulnfzjgw Biopsy ([id number])
[2023-07-17 08:49] VITALS: BP 130/80; BMI 29.7
== END 2023-07-17 15:33 | disposition home or self-care (01) ==
PROVIDERS: PCP Internal Medicine; Visit Provider Obstetrics & Gynecology
DX: N95.0 Postmenopausal bleeding (principal); N83.299 Other ovarian cyst, unspecified side
CPT/HCPCS: 58100

== ENCOUNTER 2023-07-17 10:13 | Outpatient (REF) | payer MEDICARE, SELFPAY ==
--- NOTE | ~2023-07-17 | US_ITS ---
EXAMINATION: US PELVIS CLINICAL INFORMATION: Postmenopausal bleeding COMPARISON: None available. TECHNIQUE: Ultrasound of the pelvis is performed using both transabdominal and transvaginal transducers along with Doppler. Transvaginal imaging is performed due to inadequate visualization transabdominally. FINDINGS: Uterus: The uterus is anteverted and measures 5.2 x 2.9 x 3.9 cm. 0.7 x 0.4 x 0.5 cm cluster of calcifications in the uterine fundus may represent a degenerating fibroid. The endometrium is thickened for postmenopausal woman measuring 0.6 cm. The right ovary is not seen. There are a few cysts seen in the left adnexa, the largest measures 3.5 x 3.2 x 2.8 cm with a volume of 16.4 mL. Punctate calcification is associated with this finding. There is also a 2.6 x 1.8 x 1.6 cm complex cyst adjacent to this finding. US/US pelvic and transvaginal IMPRESSION: 1. Thickened endometrium for postmenopausal woman. CREDIT CONTROLLER consult should be considered. 2. 3.5 cm complex cyst in the left adnexa with 2.6 cm adjacent complex cyst. This raises concern for low-grade cystic neoplasm. Either CREDIT CONTROLLER consult and follow-up ultrasound in 3-6 months or MRI with IV contrast for improved characterization should be considered. 3. 0.7 cm cluster of calcifications in the uterine fundus may represent a degenerating fibroid. 4. The right ovary is not seen.
== END 2023-07-17 10:14 | disposition home or self-care (01) ==
LOC: HO.US 10:13
PROVIDERS: PCP Internal Medicine; Visit Provider Obstetrics & Gynecology
DX: N95.0 Postmenopausal bleeding (principal); N83.299 Other ovarian cyst, unspecified side
CPT/HCPCS: 58100; 76830; 76856; 88305

== ENCOUNTER 2023-07-18 12:41 | Outpatient (REF) | payer MEDICARE, SELFPAY ==
--- NOTE | ~2023-07-18 | MR_ITS ---
EXAMINATION: MR PELVIS WITHOUT AND WITH CONTRAST CLINICAL INFORMATION: 63-year-old female with history of postmenopausal bleeding. Ultrasound examination reported a complex cyst of left adnexa. COMPARISON: Pelvic ultrasound from 07/17/2023. TECHNIQUE: MR imaging of the pelvis is performed using standard sequences on a high-field magnet without and with intravenous administration of 10 mL Gadavist. FINDINGS: UTERUS AND CERVIX: The anteflexed, anteverted uterus measures 6.2 x 3.1 x 4 cm ([id number] x AP x transverse dimension). The endometrium has a thickness of 0.4 cm AP. No evidence of endometrial polyp/mass. A small, 0.6 cm area containing hypointense signal appears to correspond to the small focus of calcification seen at uterine fundus on the recent ultrasound examination. This is suggestive of very small degenerated leiomyoma. ADNEXA: The right ovary is likely chronically atrophied and not definitively seen. The left ovary is 2.5 x 3.5 x 3 cm. The majority of the ovary is replaced by a cyst that has two thin septations. There are no suspicious-appearing thickened septations, papillary projections or mural nodules. O-RADS score of 3. FREE FLUID: None. LYMPHOVASCULAR: Normal. No pathologic sized lymph nodes. URINARY BLADDER: Urinary bladder and urethra are normal. GASTROINTESTINAL: No dilated bowel loops. Multiple diverticula of the visualized descending and sigmoid colon without evidence of diverticulitis. Otherwise, the visualized colon and rectum are unremarkable. MUSCULOSKELETAL: No suspicious bone lesions. Degenerative subarticular sclerosis, osteophytes and small subchondral cysts at the pubic symphysis. Mild osteoarthritis of sacroiliac joints. OTHER: Coronal single shot FSE T2-weighted sequence acquired at a large [id number] shows normal appearance of the kidneys; no hydronephrosis. There are a few simple-appearing cysts of the partially visualized liver, largest 4.7 cm. MR/MR pelvis wo/w con IMPRESSION: * There is an O-RADS category 3 cyst of the left ovary (i.e. low risk). * No evidence of endometrial pathology on this MR imaging examination. * Diverticulosis of the visualized descending and sigmoid colon without diverticulitis.
[2023-07-18] MEDS: gadobutroL 10 ML VIAL IVPUSH (13:31)
== END 2023-07-18 12:42 | disposition home or self-care (01) ==
LOC: HO.MRI 12:41
PROVIDERS: PCP Internal Medicine; Visit Provider Obstetrics & Gynecology
DX: N83.299 Other ovarian cyst, unspecified side (principal)
CPT/HCPCS: 72197; A9585

== ENCOUNTER 2023-07-20 08:08 | Outpatient (REF) | payer MEDICARE, SELFPAY ==
[2023-07-21 11:54] LABS: CA-125 12 U/mL (<35)
[2023-07-21 12:33] LABS: Carbohydrate Antigen 19-9 23 U/mL (<34)
== END 2023-07-20 08:09 | disposition home or self-care (01) ==
LOC: HO.LAB 08:08
PROVIDERS: PCP Internal Medicine; Visit Provider Obstetrics & Gynecology
DX: N83.299 Other ovarian cyst, unspecified side (principal)
CPT/HCPCS: 36415; 82378; 86301; 86304

== ENCOUNTER 2023-08-28 12:52 | Outpatient (AMB) | payer MEDICARE, SELFPAY ==
--- NOTE | 2023-08-28 13:00 | MHC.OFFVIS ---
Intake Vital Signs 08/28/23 13:04 Height 5 ft 9 in Weight 200 lb 9.93 oz BMI 29.6 BP 122/70 Intake Visit Reasons: MRI Results Supervisor Payroll Required: No Information Interpreted: non-clinical & clinical Accompanied by: Self / Same As Patient Allergies amoxicillin [Amoxicillin] Allergy (Intermediate, Verified 08/28/23 13:05) HIVES penicillin V Allergy (Unknown, Verified 08/28/23 13:05) hives ? prednisone [Prednisone] Adverse Reaction (Intermediate, Verified 08/28/23 13:05) ALTERED MENTAL STATUS, confusion Post menopausal: Yes HPI HPI Comments History of Present Illness Details Presenting for follow-up after pelvic MRI which showed the following: IMPRESSION: * There is an O-RADS category 3 cyst of the left ovary (i.e. low risk). * No evidence of endometrial pathology on this MR imaging examination. * Diverticulosis of the visualized descending and sigmoid colon without diverticulitis. CA 125, CEA and CA 19-9 were all normal The patient was seen by Gyne Onc and has robotic assisted laparoscopic hysterectomy BSO scheduled mid August [facility] Medical History Abnormal Pap smear of cervix Essential hypertension Chronic GERD High cholesterol Surgical History History of tonsillectomy History of blepharoplasty History of umbilical hernia repair History of hammer toe correction Family History Mother Diabetes Hypertension Father Diabetes Brother Lung cancer Brother Cirrhosis of liver Substance use disorder Social History Housing: House Alcohol intake: current Alcohol intake frequency: a few times a month Alcohol type: beer Patient Tobacco Use Status: Current everyday Tobacco user Tobacco use type: Cigarette Cigarette Packs Per Day: 1 Cigarettes Per Day: 15 e-Cigarette/Vaping Use: Never Used Second Hand Smoke Exposure: No service: No Current occupational status: unemployed Current occupational exposures/hazards: No Sexual orientation: Straight/Heterosexual Gender identity: Female Cognitive needs: No Hearing needs: No Vision needs: Yes Review of Systems Const All systems reviewed & are unremarkable except as noted in HPI and below Reports as per HPI and Reports no additional complaints GI Reports no additional complaints Reports no additional complaints Physical Exam Vital Signs: Last Vital Signs BP 122/70 08/28/23 13:04 BMI result Body Mass Index 29.6 Assessment & Plan Assessment & Plan (1) Complex ovarian cyst: Code(s): N83.299 - Other ovarian cyst, unspecified side Plan: Discussed with the patient the finding on MRI ORADs 3, low risk of malignancy and normal ovarian cancer tumor markers,- sensitivity, specificity, positive and negative predictive value. All questions answered, the patient verbalized understand Coding Level of Care Code Est Pt Level 3 (27273) Diagnoses Complex ovarian cyst N83.299
[2023-08-28 13:04] VITALS: BP 122/70; BMI 29.6
== END 2023-08-28 16:17 | disposition home or self-care (01) ==
LOC: HO.HWS 12:52
PROVIDERS: PCP Internal Medicine; Visit Provider Obstetrics & Gynecology
DX: N83.299 Other ovarian cyst, unspecified side (principal)
CPT/HCPCS: 99213

== ENCOUNTER → 2023-08-28 12:52 | Outpatient (BNVA) | payer MEDICARE, SELFPAY | PROVIDERS: PCP Internal Medicine; Visit Provider Obstetrics & Gynecology | DX: N83.292 Other ovarian cyst, left side (principal) | CPT/HCPCS: 99212 ==

== ENCOUNTER 2023-11-06 08:40 | Outpatient (AMB) | payer MEDICARE, SELFPAY ==
[2023-11-06 09:23] VITALS: BP 140/90; PULSE 95; TEMP 36.3; O2SAT 97; BMI 29.5
--- NOTE | 2023-11-06 09:23 | AM.OFFWIN_ITS ---
Intake Vital Signs 11/06/23 09:23 Height 5 ft 9 in Weight 200 lb BMI 29.5 BP 140/90 H Blood Pressure Location Lt brachial Position Sitting Pulse 95 Pulse Source Pulse Oximeter Temp 97.3 F Temp Source Temporal Artery Scan Pulse Oximetry (%) 97 Oxygen Delivery Method Room Air Intake Visit Reasons: EP cut on lower calf Intake Note: pt is here today for cut on lower calf started yesterday Patient Tobacco Use Status: Current everyday Tobacco user Allergies amoxicillin [Amoxicillin] Allergy (Intermediate, Verified 08/28/23 13:05) HIVES penicillin V Allergy (Unknown, Verified 11/06/23 09:29) Hives prednisone [Prednisone] Adverse Reaction (Intermediate, Verified 08/28/23 13:05) ALTERED MENTAL STATUS, confusion Do you need a note to return to daycare/school/sports/work: No HPI HPI Comments History of Present Illness Details 63-year-old female presents today compla ining of low an abrasion on her left calf after tripping over a rug iron fence in her yard. She has some mild surrounding erythema and pain with the wound but is able to ambulate without difficulty. TD greater than 8 years [facility] Medical History Abnormal Pap smear of cervix Essential hypertension Chronic GERD High cholesterol Surgical History History of tonsillectomy History of blepharoplasty History of umbilical hernia repair History of hammer toe correction Family History Mother Diabetes Hypertension Father Diabetes Brother Lung cancer Brother Cirrhosis of liver Substance use disorder Social History Housing: House Alcohol intake: current Alcohol intake frequency: a few times a month Alcohol type: beer Patient Tobacco Use Status: Current everyday Tobacco user Tobacco use type: Cigarette Cigarette Packs Per Day: 1 Cigarettes Per Day: 15 e-Cigarette/Vaping Use: Never Used Second Hand Smoke Exposure: No service: No Current occupational status: unemployed Current occupational exposures/hazards: No Sexual orientation: Straight/Heterosexual Gender identity: Female Cognitive needs: No Hearing needs: No Vision needs: Yes Review of Systems Const All systems reviewed & are unremarkable except as noted in HPI and below Physical Exam Vital Signs: Last Vital Signs Temp 97.3 F 11/06/23 09:23 Pulse 95 11/06/23 09:23 BP 140/90 H 11/06/23 09:23 Pulse Ox 97 11/06/23 09:23 Oxygen Delivery Method Room Air 11/06/23 09:23 BMI result Body Mass Index 29.5 Const General: healthy appearing and no acute distress Skin Trauma: abrasion (Left lower calf with surrounding erythema) Assessment & Plan Assessment & Plan (1) Abrasion of calf: Code(s): S80.819A - Abrasion, unspecified lower leg, initial encounter (2) Cellulitis: Code(s): L03.90 - Cellulitis, unspecified Plan: The patient will put on cephalexin to treat the early cellulitis. The patient is advised to activity to tolerance. Tdap ordered today Plan See plan Orders: Orders TDaP Immunization Today S80.819A - Abrasion, unspecified lower leg, initial encounter, Z23 - Encounter for immunization Medications: New doxycycline hyclate 100 mg PO BID 14 caps 0RF 7 days Coding Level of Care Code Est Pt Level 3 (14557) Diagnoses Abrasion of calf S80.819A Cellulitis L03.90
== END 2023-11-06 12:11 | disposition home or self-care (01) ==
PROVIDERS: PCP Internal Medicine; Visit Provider Physician Assistant Medical
DX: S80.812A Abrasion, left lower leg, initial encounter (principal); L03.90 Cellulitis, unspecified; Z23 Encounter for immunization
CPT/HCPCS: 90471; 90715; 99213

== ENCOUNTER 2024-01-31 17:16 | Outpatient (AMB) | payer MEDICARE, SELFPAY ==
[2024-01-31 17:17] VITALS: BP 118/80; BMI 29.1
--- NOTE | 2024-01-31 17:17 | A.OFFPC_ITS ---
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 Accompanied by: Self / Same As Patient Allergies amoxicillin [Amoxicillin] Allergy (Intermediate, Verified 01/31/24 17:29) HIVES penicillin V Allergy (Unknown, Verified 01/31/24 17:29) Hives prednisone [Prednisone] Adverse Reaction (Intermediate, Verified 01/31/24 17:29) ALTERED MENTAL STATUS, confusion Medication List - Last Reconciled 01/31/24 by Kateryna Rain MD atorvastatin 20 mg PO BEDTIME 90 days losartan 25 mg PO DAILY 90 days omeprazole 20 mg PO DAILY Tobacco use date assessed: 01/31/24 Fall risk assessment: No Falls in past year Last assessed Fall Risk: 01/31/24 Dental Screening Dental Screen Date: 01/31/24 Did you have a dental visit in the last 12 months?: Yes Did you have a dental problem in the last 6 months where you did not have access to dental care?: No Was dental information given to patient?: Patient has dentist HPI HPI Comments History of Present Illness Details This is a 63-year-old female that comes her physical exam. Mammogram done 2022 was normal. Last Pap smear was 2022 and a hysterectomy this year. Last colonoscopy was 2016 showing tubular adenoma and will be refer through open access which she did mention that she prefers Dr. Spencer. She is a smoker and was advised to quit and I will start her on bupropion for that matter. She is considering acupuncture which has helped in the past. No acute complaints. [facility] Medical History Abnormal Pap smear of cervix Essential hypertension Chronic GERD High cholesterol Surgical History History of total hysterectomy History of tonsillectomy History of blepharoplasty History of umbilical hernia repair History of hammer toe correction Family History (Updated 01/31/24 @ 17:33 by Kateryna Rain MD) Mother Diabetes Hypertension Father Diabetes CHF (congestive heart failure) Brother Lung cancer Brother Cirrhosis of liver Substance use disorder Social History Housing: House Alcohol intake: current Alcohol intake frequency: a few times a month Alcohol type: beer Patient Tobacco Use Status: Current everyday Tobacco user Tobacco use type: Cigarette Cigarette Packs Per Day: 1 Cigarettes Per Day: 15 e-Cigarette/Vaping Use: Never Used Second Hand Smoke Exposure: No service: No Current occupational status: unemployed Current occupational exposures/hazards: No Sexual orientation: Straight/Heterosexual Gender identity: Female Cognitive needs: No Hearing needs: No Vision needs: Yes Questionnaire PHQ-9 Over the last 2 weeks, how often have you been bothered by any of the following problems? 1. Little interest or pleasure in doing things: not at all 2. Feeling down, depressed, or hopeless: not at all 3. Trouble falling or staying asleep, or sleeping too much: not at all 4. Feeling tired or having little energy: not at all 5. Poor appetite or overeating: not at all 6. Feeling bad about yourself - or that you are a failure or have let yourself or your family down: not at all 7. Trouble concentrating on things, such as reading the newspaper or watching television: not at all 8. Moving or speaking so slowly that other people could have noticed. Or the opposite - being so fidgety or restless that you have been moving around a lot more than usual: not at all 9. Thoughts that you would be better off or of hurting yourself in some way: not at all Total score: 0 Depression Screening Interpretation: Negative Depression Screening Done: Yes 58801 - PHQ-9 Billing: Yes Source: Developed by Drs. Michael Flores, Melinda Infante, Rohan Cage and colleagues, with an educational tyler from [employer]. Thrive Questionnaire Date Thrive assessed: 01/31/24 I am a: Patient What is your living situation today?: I have a steady place to live Within the past 12 months, did the food you bought not last and you didn't have the money to get more?: Never true Within the past 12 months, did you worry whether your food would run out before you got money to buy more?: Never true Do you have trouble paying for medicines?: No Do you have trouble getting transportation to medical appointments?: No Do you have trouble paying your heating and electricity bill?: No Do you have trouble taking care of your child, family member or friend?: No Do you have trouble with day-to-day activities such as bathing, preparing meals, shopping, managing finances, etc.?: No Are you currently unemployed and looking for a job?: No Are you interested in more education?: No Please select the resources that you would like help with: None Currently or been in a relationship where the following occur: No concerns reported THRIVE Score: 0 AUDIT C Alcohol Use Questionnaire (AUDIT-C) 1. How often do you have a drink containing alcohol?: Monthly or less 2. How many drinks containing alcohol do you have on a typical day when you are drinking?: 1 or 2 3. How often do you have six or more drinks on one occasion?: Never Total Score: 1 Score Reviewed/Action Taken: No BROOKLYNN-7 AMB Questionnaire BROOKLYNN-7 Date BROOKLYNN - 7 assessed: 01/31/24 Feeling nervous, anxious, or on edge: 1 = Several days Not being able to stop or control worryin = Not at all Worrying too much about different things: 0 = Not at all Trouble relaxin = Not at all Being so restless that it is hard to sit still: 0 = Not at all Becoming easily annoyed or irritable: 0 = Not at all Feeling afraid as if something awful might happen: 0 = Not at all Total BROOKLYNN-7 score (0-4 normal; 5-9 mild; 10-14 moderate; 15-21 severe): 1 Source: Developed by Drs. Michael Flores, Melinda Infante, Rohan Cage and colleagues, with an educational tyler from [employer]. BROOKLYNN-7 Assessment Billing BROOKLYNN-7 Assessment Tool: BROOKLYNN-7 Assessment 97449 Review of Systems Const All systems reviewed & are unremarkable except as noted in HPI and below Card Denies chest pain at rest, Denies chest pain with activity, Denies edema, Denies irregular heart rhythm, Denies claudication, Denies dyspnea, Denies dyspnea on exertion, Denies orthopnea, Denies paroxysmal nocturnal dyspnea and Denies slow heart rate Resp Denies cough, Denies dyspnea and Denies dyspnea on exertion GI Denies abdominal pain, Denies change in bowel habits, Denies excessive flatus, Denies nausea and Denies vomiting Denies urinary incontinence, Denies urinary hesitancy and Denies urinary urgency Neuro Denies behavioral changes Psych Denies behavioral changes Physical exam (Primary Care) Vital Signs: Last Vital Signs BP 118/80 01/31/24 17:17 BMI result Body Mass Index 29.1 BMI Assessment/Plan discussion: High BMI High, discussed plan: lifestyle, weight reduction, dietary and physical activity Tobacco/Smoking Status: Tobacco use Status Tobacco use date assessed 01/31/24 01/31/24 17:25 Patient Tobacco Use Status Current everyday Tobacco 01/31/24 17:25 Tobacco use type Cigarette 01/31/24 17:25 e-Cigarette/Vaping Use Never Used 01/31/24 17:25 Are you ready to quit: Yes Tobacco cessation counseling provided: Yes Items discussed: QuitWorks Relapse Prevention: discussed the importance of a supportive environment, discussed negative mood or depression after quitting, weight gain after smoking is common and discussed dietary, exercise and/or lifestyle changes Number of minutes spent counselin CPT code: 58912 - 4-10 Minutes PHQ-9: PHQ-9 Score PHQ-9: Total score 0 01/31/24 17:52 Depression Screening Interpretation: Negative Thrive Assessment: Date of Thrive Assessment Date Thrive assessed 01/31/24 01/31/24 17:25 Currently or been in a relationship where the following occur: No concerns reported [facility] Head: Yes normal to inspection, Yes normocephalic and Yes atraumatic Ears: external ears normal Eyes General: appearance normal, both eyes and all related structures Eyelids: Yes eyelids normal Conjunctivae: conjunctivae normal Neck Neck: Yes normal visual inspection and Yes supple Resp Effort & Inspection: normal respiratory effort Auscultation: clear to auscultation bilaterally Cardio Jugular venous distension: no JVD Rate: regular rate Rhythm: regular rhythm Heart sounds: S1 normal heart sound present and S2 normal heart sound present GI Inspection: Yes normal to inspection Palpation (GI): Soft to palpation and nontender Auscultation: normal bowel sounds Skin General skin exam: no rashes or lesions noted Neuro General: no focal motor deficits Extrem General: Yes full ROM Psych Appearance: grossly normal Immunizations pneumoc 20-arsen conj-dip cr(PF) 0.5 mL IM syringe Performing Provider: Kateryna Rain MD [facility] Administered by: HEENA Pierson on 01/31/24 17:53 Dose Route Admin Location Dispensed Lot Number Expiration Date NDC Camera Repairer 0.5 mL IM Left Deltoid 0.5 mL [id number] 01/30/25 WYETH/PFIZER VIS Given Date VIS Provided VIS Publication Date 01/31/24 Single Vaccine 21 Eligibility Eligibility Date Funding Source Not [facility] Eligible 01/31/24 Private Assessment and Plan Assessment & Plan (1) Physical exam: Code(s): Z00.00 - Encounter for general adult medical examination without abnormal findings Plan: Repeat in a year. Orders: Orders XR DEXA axial skeleton 01/31/24 N95.9 - Unspecified menopausal and perimenopausal disorder Comprehensive Vanderbilt. Panel Fast 01/31/24 Z00.00 - Encounter for general adult medical examination without abnormal findings Lipid Panel 01/31/24 Z00.00 - Encounter for general adult medical examination without abnormal findings Pneumococcal 20 Immunization 01/31/24 Z23 - Encounter for immunization Referrals Open Access Screening Colonoscopy Referral Z12.11 - Encounter for screening for malignant neoplasm of colon Lung Cancer Screening Referral F17.200 - Nicotine dependence, unspecified, uncomplicated Medications: New bupropion HCl XL 150 mg PO QAM 90 days 90 tabs 0RF Coding Level of Care Code Est Pt Prev Care >65y(50630) Diagnoses Physical exam Z00.00 Additional Codes BROOKLYNN-7 Assessment Billing - BROOKLYNN-7 Assessment Tool: BROOKLYNN-7 Assessment 21717 ([id number]) Vital Signs *Quality* - CPT code: 72430 - 4-10 Minutes ([id number]) Time Spent (min) 35
== END 2024-01-31 17:47 | disposition home or self-care (01) ==
PROVIDERS: PCP Internal Medicine; Visit Provider Internal Medicine
DX: F17.210 Nicotine dependence, cigarettes, uncomplicated (principal); Z23 Encounter for immunization
CPT/HCPCS: 90471; 90677; 99214; 99406

== ENCOUNTER 2024-03-29 12:13 | Outpatient (REF) | payer MEDICARE, SELFPAY ==
[2024-03-29 13:40] LABS: Appearance Urine Cloudy; Color Urine Yellow; Glucose Urine UA Negative (Negative); Leukocyte Esterase Urine Moderate (2+) (Negative); Nitrite Urine Positive (Negative); PH 5.5 (5.0-9.0); Specific Gravity - Urine >= 1.030 (1.005-1.025); UMIC TRIGGER UACC YES; Urine Blood Moderate (2+) (Negative); Urine Ketones Negative (Negative); Urine Protein Negative (Neg-Trace)
[2024-03-29 13:46] LABS: Bacteria Urine 4+ (None Seen); UACC Culture Trigger YES; WBC Urine >50 /HPF (0-5)
== END 2024-03-29 12:14 | disposition home or self-care (01) ==
LOC: HO.HMGCLDS 12:13
PROVIDERS: PCP Internal Medicine; Visit Provider Internal Medicine
DX: R30.0 Dysuria (principal)
CPT/HCPCS: 81001; 87086; 87088; 87186

== ENCOUNTER 2024-05-13 09:33 | Outpatient (REF) | payer MEDICARE, SELFPAY ==
--- NOTE | ~2024-05-13 | MM_ITS ---
EXAMINATION: MM SCREENING DIGITAL BREAST TOMOSYNTHESIS, BILATERAL CLINICAL INFORMATION: Screening. Asymptomatic. COMPARISON: Mammography: Comparison is made with available priors TECHNIQUE: Digital breast mammography with tomosynthesis is performed in both the craniocaudal and mediolateral oblique views along with computer-aided detection (CAD). FINDINGS: The breasts are heterogeneously dense, which may obscure small masses (ACR BI-RADS breast composition Category c). There are no significant masses, abnormal calcifications, or other abnormalities. MM/MM tomosynthesis screening BI IMPRESSION: No mammographic evidence of malignancy. ASSESSMENT: BI-RADS BI-RADS 1 - Negative RECOMMENDATION: Routine annual mammography screening. 1 year F/U This examination should not preclude the clinical evaluation of a suspicious palpable abnormality. This patient's information was entered into a reminder system with a target due date for their next mammogram. Electronically signed by: Leanne Andrews DO 05/13/2024 11:39 AM CARYL
--- NOTE | ~2024-05-13 | MM_ITS ---
EXAMINATION: BONE DENSITOMETRY CLINICAL INDICATION: Unspecified menopausal and perimenopausal disorder. COMPARISON: Previous BD dated 12/06/2012 and baseline BD dated 09/27/2007. TECHNIQUE: Using a Kashmi DXA System (software version: 13.1) manufactured by [employer], dual-energy x-ray absorptiometry was performed of the lumbar spine and left hip. The images are of good technical quality. Summary results are attached. FINDINGS: LEFT FEMUR, NECK: Current: BMD 0.936 g/cm2, Z-score 0.2, T-score -0.7, normal. Prior: BMD 1.019 g/cm2. Baseline: BMD 0.965 g/cm2. LEFT FEMUR, TOTAL: Current: BMD 1.002 g/cm2, Z-score 0.6, T-score 0.0, normal, 1.1% decrease from previous, 2.5% increase from baseline (<5% change is not significant). Prior: BMD 1.013 g/cm2. Baseline: BMD 0.978 g/cm2. AP SPINE L1-L2 (excluding L3 and L4): The data of L1-L4 has been changed to exclude the L3 and L4 vertebral bodies, because significant degenerative change at these levels may cause overestimation of lumbar spine density. Current: BMD 0.816 g/cm2, Z-score -2.2, T-score -2.9, osteoporosis, 15.9% decrease from previous, 20.8% decrease from baseline (<5% change is not significant). Prior: BMD 0.970 g/cm2. Baseline: BMD 1.030 g/cm2. IDENTIFIED RISK FACTORS: Early menopause, secondary osteoporosis, hysterectomy, bilateral oophorectomy, current smoker. HISTORY OF FRACTURE: None listed. MEDICATIONS: None listed. MM/XR DEXA axial skeleton IMPRESSION: 1. DIAGNOSIS: Osteoporosis based on the lowest T-score value of -2.9 in the lumbar spine applying World Health Organization criteria. 2. 10-YEAR FRACTURE RISK PREDICTION, FRAX: According to the guidelines, FRAX calculation should only be performed on patients in the osteopenia bone density category. Therefore, FRAX was not performed on this patient. 3. Treatment Recommendations: NOF guidelines recommend consideration for treatment in postmenopausal women and men age 50 and older presenting with the following: -A hip or vertebral (clinical or morphometric) fracture. -T-score less than or equal to -2.5 at the femoral neck or spine after appropriate evaluation to exclude secondary causes. -Low bone mass at the hip or spine and a 10-year fracture probability by FRAX of greater than or equal to 3% for hip fracture or greater than or equal to 20% for major osteoporotic fracture based on the [place] adapted WHO algorithm. 4. Other Recommendations: All treatment decisions require clinical judgment and consideration of individual patient factors, including patient preferences, comorbidities, previous drug use, risk factors not captured in the FRAX model (e.g. frailty, falls, vitamin D deficiency, increased bone turnover, interval significant decline in bone density) and possible under or overestimation of fracture risk by FRAX. Additional medical evaluation for secondary cause of low bone mineral density may be appropriate. FUTURE SCAN RECOMMENDATION: People with diagnosed cases of osteoporosis or at high risk for fracture should have regular bone mineral density tests. For patients eligible for Medicare, routine testing is allowed once every 2 years. The testing frequency can be increased to one year for patients who have rapidly progressing disease, those who are receiving or discontinuing medical therapy to restore bone mass, or have additional risk factors. Electronically signed by: Mary Ellis MD 05/13/2024 01:08 PM CARYL SOSA
== END 2024-05-13 09:34 | disposition home or self-care (01) ==
LOC: HO.MAMMO 09:33
PROVIDERS: PCP Internal Medicine; Visit Provider Internal Medicine
DX: Z12.31 Encounter for screening mammogram for malignant neoplasm of breast (principal); Z13.820 Encounter for screening for osteoporosis; Z78.0 Asymptomatic menopausal state
CPT/HCPCS: 77063; 77067; 77080

== ENCOUNTER → 2024-05-13 09:45 | Outpatient (BNV) | payer MEDICARE, SELFPAY | PROVIDERS: PCP Internal Medicine; Visit Provider Internal Medicine | DX: Z12.31 Encounter for screening mammogram for malignant neoplasm of breast (principal) | CPT/HCPCS: 77063; 77067 ==

== ENCOUNTER 2024-05-14 10:13 | Outpatient (REF) | payer MEDICARE, SELFPAY | END 2024-05-14 10:14 | disposition home or self-care (01) | LOC: HO.HOSX 10:13 | DX: M25.551 Pain in right hip (principal); M70.61 Trochanteric bursitis, right hip | CPT/HCPCS: 20610; 73502; 99212; J1010; J2003 ==

== ENCOUNTER 2024-05-14 11:36 | Outpatient (AMB) | payer MEDICARE, SELFPAY ==
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
== END 2024-05-14 12:17 | disposition home or self-care (01) ==
PROVIDERS: PCP Internal Medicine
DX: M70.61 Trochanteric bursitis, right hip (principal)
CPT/HCPCS: 20610; 99213

== ENCOUNTER → 2024-05-14 11:37 | Outpatient (BNV) | payer MEDICARE, SELFPAY | PROVIDERS: Visit Provider Radiology Diagnostic Radiology | DX: M25.551 Pain in right hip (principal) | CPT/HCPCS: 73502 ==

== ENCOUNTER 2024-06-09 14:13 | Outpatient (AMB) | payer MEDICARE, SELFPAY ==
--- NOTE | 2024-06-09 14:17 | MHC.OFFVIS ---
Vital Signs 06/09/24 14:18 Height 5 ft 9 in Weight 216 lb 4.375 oz BMI 31.9 BP 120/68 Blood Pressure Location Lt brachial Position Sitting Pulse 88 Pulse Source Pulse Oximeter Pulse Oximetry (%) 98 Oxygen Delivery Method Room Air Intake Visit Reasons: Osteoporosis Intake Note: Patient presents today for osteoporosis. She was internally referred by her PCP, Dr. Hammonds. Allergies amoxicillin [Amoxicillin] Allergy (Intermediate, Verified 06/09/24 14:20) HIVES penicillin V Allergy (Unknown, Verified 06/09/24 14:20) Hives prednisone [Prednisone] Adverse Reaction (Intermediate, Verified 06/09/24 14:20) ALTERED MENTAL STATUS, confusion Medication List - Last Reconciled 06/09/24 by Tosha Gan MD atorvastatin 20 mg PO BEDTIME 90 days bupropion HCl XL 150 mg PO QAM 90 days losartan 25 mg PO DAILY 90 days omeprazole 20 mg PO DAILY HPI Comments Details: Patient is a 63-year-old female with hypertension and hyperlipidemia who presents for evaluation of osteoporosis Risk Factor Assessment: ? Age: 63 years ? Race: ? Menarche: 14 years - 40 years (early menopause) ? Family history including hip fracture: mom with osteoporosis, no hip fracture ? Low calcium/vitamin-D intake: Has good dairy intake, no vit D supplementation ? Estrogen deficiency: none ? Sedentary lifestyle: currently joined [employer] ? Cigarette smokin cigarrettes/ day since 15 years old. 24 pack years ? Excessive alcohol: no EtOh ? Excessive caffeine: drinks 1-2 cups of coffee High-risk medication assessment: ? Glucocorticoids: has a history of short course for allergic reaction ? Excess thyroid hormone: none No history of breast cancer No history of falls and no subsequent fractures [facility] Medical History Essential hypertension Hyperlipidemia Chronic GERD Tubular adenoma of colon Osteopenia Nicotine dependence, cigarettes, uncomplicated Surgical History History of total hysterectomy History of loop electrical excision procedure (LEEP) History of umbilical hernia repair History of blepharoplasty History of hammer toe correction History of tonsillectomy History of colonoscopy History of esophagogastroduodenoscopy (EGD) Family History Mother Diabetes Hypertension Father Diabetes CHF (congestive heart failure) Brother Lung cancer Brother Cirrhosis of liver Substance use disorder Social History Housing: House Alcohol intake: current Alcohol intake frequency: a few times a month Alcohol type: beer Patient Tobacco Use Status: Current everyday Tobacco user Tobacco use type: Cigarette Cigarette Packs Per Day: 1 Cigarettes Per Day: 15 e-Cigarette/Vaping Use: Never Used Second Hand Smoke Exposure: No service: No Current occupational status: employed Current occupational exposures/hazards: No Sexual orientation: Straight/Heterosexual Gender identity: Female Cognitive needs: No Hearing needs: No Vision needs: Yes Review of Systems Const Details: Review of Systems Constitutional: Denies fever, chills, weight loss ENT: Denies vision changes, eye pain or eye redness, dental caries, dry mouth GI: Denies nausea, vomiting, diarrhea, abdominal pain, change in BM Pulm: Denies SOB, [place], hemoptysis, wheezing Cards: Denies chest pain, palpitations Skin: Denies Raynaud's, rash, nail changes, photosensitivity, MEDICAL 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 Well appearing and in no apparent painful distress HEENT Conjunctiva and sclera clear. ?Pupils equal round and reactive to light. ?No lymphadenopathy. ?Normal dentition. No oral or nasal ulcers noted. No evidence of discoid rash to the leticia of ears CHEST/RESPIRATORY SYSTEM Normal respiratory effort and able to speak in complete sentences. ?Clear to auscultation bilaterally. ?No crackles, rales, rhonchi, wheezes heard. CARDIAC SYSTEM Regular rate and rhythm. ?S1 and S2 heard no murmurs. ?Radial pulses intact bilaterally MSK Hands: ?Good director of clinical education strength bilaterally - 5/5. ?Heberden's nodes noted to right 3rd DIPs. Deformity noted to left 5th PIP patient states that this was a volleyball accident.. ?No synovitis noted to the MCPs, PIPs or DIPs. ?No tenderness to palpation of these joints. Wrists: ?Full range of motion at the wrists without pain. ?No tenderness to palpation or synovitis noted to the wrists. Elbows: Full range of motion without pain. No tenderness, weakness, swelling, increased warmth or erythema. Shoulders: Full range of motion without pain. No tenderness, weakness, swelling, increased warmth or erythema. Hips: Full range of motion without pain. Hip bursa: No tenderness to palpation Knees: ?Full range of motion. ?No tenderness, swelling, increased warmth or erythema.?No effusion or crepitations Ankles: Full range of motion. ?No tenderness, swelling, increased warmth or erythema.? Feet: ?Negative squeeze test. ?No tenderness to palpation or swelling of the MTPs. Tender points:??No tenderness to palpation of the neck, shoulders, chest, elbows, hips, buttocks or knees. SKIN Skin intact without rashes. Results Reviewed Results Reviewed: DEXA 05/2024 FINDINGS: LEFT FEMUR, NECK: Current: BMD 0.936 g/cm2, Z-score 0.2, T-score -0.7, normal. Prior: BMD 1.019 g/cm2. Baseline: BMD 0.965 g/cm2. LEFT FEMUR, TOTAL: Current: BMD 1.002 g/cm2, Z-score 0.6, T-score 0.0, normal, 1.1% decrease from previous, 2.5% increase from baseline (<5% change is not significant). Prior: BMD 1.013 g/cm2. Baseline: BMD 0.978 g/cm2. AP SPINE L1-L2 (excluding L3 and L4): The data of L1-L4 has been changed to exclude the L3 and L4 vertebral bodies, because significant degenerative change at these levels may cause overestimation of lumbar spine density. Current: BMD 0.816 g/cm2, Z-score -2.2, T-score -2.9, osteoporosis, 15.9% decrease from previous, 20.8% decrease from baseline (<5% change is not significant). Prior: BMD 0.970 g/cm2. Baseline: BMD 1.030 g/cm2. Assessment & Plan Assessment & Plan (1) Osteoporosis: Code(s): M81.0 - Age-related osteoporosis without current pathological fracture Category: Medical Qualifiers: Osteoporosis type: age-related Presence of current pathological fracture: without current pathological fracture Qualified Code(s): M81.0 - Age-related osteoporosis without current pathological fracture Plan: #Osteoporosis of the spine Patient with severe osteoporosis of the spine. No history of fractures. Has a history of GERD another stomach issues. Concern for tolerance of oral bisphosphonates Plan to do Prolia subcutaneous every 6 months for 2 years and then recheck DEXA Plan - prolia SC every 6 months - CMP, Vit D, Collagen type I C, TSH, PTH - RT August to start injections - Weight bearing exercises - Vit D supplementation Plan I spent 35 minutes reviewing the record and labs, seeing the patient, discussing the treatment plan and documenting in the medical record Orders: Orders Thyroid Stimulating Hormone Today M81.0 - Age-related osteoporosis without current pathological fracture Comprehensive Met. Panel Today M81.0 - Age-related osteoporosis without current pathological fracture Collagen Type I C-Telopeptide Today M81.0 - Age-related osteoporosis without current pathological fracture Parathyroid Hormone Intact Today M81.0 - Age-related osteoporosis without current pathological fracture Vitamin D 25-OH (D2 and D3) Today M81.0 - Age-related osteoporosis without current pathological fracture Protein Electrophoresis, Serum Today M81.0 - Age-related osteoporosis without current pathological fracture Medications: New denosumab (Prolia) 60 mg subcut [id number] 1 mL 2RF M81.0 - Age-related osteoporosis without current pathological fracture Coding Level of Care Code New Pt Level 3 (55589) Diagnoses Age-related osteoporosis without current pathological fracture M81.0 Osteoporosis type: age-related Presence of current pathological fracture: without current pathological fracture
[2024-06-09 14:18] VITALS: BP 120/68; PULSE 88; O2SAT 98; BMI 31.9
== END 2024-06-09 15:05 | disposition home or self-care (01) ==
PROVIDERS: PCP Internal Medicine; Visit Provider Student in an Organized Health Care Education/Training Program
DX: M81.0 Age-related osteoporosis without current pathological fracture (principal)
CPT/HCPCS: 99203

== ENCOUNTER → 2024-06-09 14:13 | Outpatient (BNVA) | payer MEDICARE, SELFPAY | PROVIDERS: PCP Internal Medicine; Visit Provider Student in an Organized Health Care Education/Training Program | DX: M81.0 Age-related osteoporosis without current pathological fracture (principal); E78.5 Hyperlipidemia, unspecified | CPT/HCPCS: 99202 ==

== ENCOUNTER 2024-06-14 11:06 | Outpatient (REF) | payer MEDICARE, SELFPAY ==
[2024-06-14 12:32] LABS: Parathyroid Hormone Intact 73.5 pg/mL (8.7-77.1)
[2024-06-14 12:43] LABS: Alanine Aminotransferase 57 U/L (0-31); Albumin Level 4.8 g/dL (3.5-5.0); Alkaline Phosphatase 108 U/L (39-117); Anion Gap 14 (12-20); Aspartate Amino Transferase 38 U/L (5-31); Bilirubin Total 0.6 mg/dL (0.0-1.0); Blood Urea Nitrogen 17 mg/dL (9-16); Calcium 9.6 mg/dL (8.4-10.2); Carbon Dioxide 26 mmol/L (22-29); Chloride 104 mmol/L (96-108); Estimated Glomerular Filt Rate 52; Glucose Random 92 mg/dL (60-115); Potassium 3.9 mmol/L (3.3-5.1); Sodium 140 mmol/L (135-145); Total Protein 7.9 g/dL (6.5-8.0)
[2024-06-14 12:58] LABS: Thyroid Stimulating Hormone 1.82 uIU/mL (0.32-4.0)
[2024-06-17 13:13] LABS: Prot Elec - Albumin 4.7 g/dL (3.8-4.8); Prot Elec - Alpha1 0.4 g/dL (0.2-0.3); Prot Elec - Alpha2 0.8 g/dL (0.5-0.9); Prot Elec - Beta 1 0.5 g/dL (0.4-0.6); Prot Elec - Beta 2 0.4 g/dL (0.2-0.5); Prot Elec - Gamma 0.8 g/dL (0.8-1.7); Prot Elec - Total Protein 7.4 g/dL (6.1-8.1)
[2024-06-18 20:29] LABS: Collagen Type I C-Telopeptide 194 pg/mL (see note)
[2024-06-19 11:49] LABS: Vitamin D 25-OH, D2 <4 ng/mL; Vitamin D 25-OH, D3 26 ng/mL; Vitamin D 25-OH, Total 26 ng/mL (30-100)
== END 2024-06-14 11:07 | disposition home or self-care (01) ==
LOC: HO.LAB 11:06
PROVIDERS: PCP Internal Medicine; Visit Provider Student in an Organized Health Care Education/Training Program
DX: M81.0 Age-related osteoporosis without current pathological fracture (principal)
CPT/HCPCS: 36415; 80053; 82306; 82523; 83970; 84165; 84443

== ENCOUNTER 2024-06-16 11:30 | Outpatient (AMB) | payer MEDICARE, SELFPAY ==
--- NOTE | 2024-06-16 12:10 | AM.OFFVISNUR ---
Intake Visit Reasons: Osteoporosis/prolia injection Allergies amoxicillin [Amoxicillin] Allergy (Intermediate, Verified 06/09/24 14:20) HIVES penicillin V Allergy (Unknown, Verified 06/09/24 14:20) Hives prednisone [Prednisone] Adverse Reaction (Intermediate, Verified 06/09/24 14:20) ALTERED MENTAL STATUS, confusion Office Meds Prolia 60 mg/mL subcutaneous syringe Performing Provider: Tosha Gan MD [place] [facility] [place] [facility] [facility] Administered by: Nancy Coe RN on 06/16/24 12:10 Dose Route Admin Location Dispensed Lot Number Expiration Date [facility] Computer Forensics Technician 60 mg subcut right upper arm 1 mL [id number] 10/29/26 56360-853-79 [facility] Comments: Consent form signed by patient. Pt tolerated injection well and observed for 15 minutes following injection without adverse reaction. Assessment & Plan Assessment & Plan Orders: Orders AMB Denosumab Injection Patient Supplied Today M81.0 - Age-related osteoporosis without current pathological fracture Medications: New Prolia (denosumab) 60 mg subcut ONCE 1 mL 0RF NS M81.0 - Age-related osteoporosis without current pathological fracture
== END 2024-06-16 12:20 | disposition home or self-care (01) ==
PROVIDERS: PCP Internal Medicine; Visit Provider Student in an Organized Health Care Education/Training Program
DX: M81.0 Age-related osteoporosis without current pathological fracture (principal)

== ENCOUNTER → 2024-06-16 11:30 | Outpatient (BNVA) | payer MEDICARE, SELFPAY | PROVIDERS: PCP Internal Medicine; Visit Provider Student in an Organized Health Care Education/Training Program | DX: M81.0 Age-related osteoporosis without current pathological fracture (principal); Z79.620 Long term (current) use of immunosuppressive biologic | CPT/HCPCS: 96372; J0897 ==

== ENCOUNTER 2024-08-13 13:13 | Outpatient (AMB) | payer MEDICARE, SELFPAY ==
--- NOTE | 2024-08-13 13:17 | A.OFFVIS_ITS ---
Vital Signs 08/13/24 13:22 Height 5 ft 9 in Weight 186 lb 15.232 oz BMI 27.6 BP 115/74 Blood Pressure Location Lt brachial Position Sitting Pulse 115 H Pulse Source Pulse Oximeter Pulse Oximetry (%) 98 Oxygen Delivery Method Room Air Intake Visit Reasons: follow up Intake Note: Patient presents for follow up. Allergies amoxicillin [Amoxicillin] Allergy (Intermediate, Verified 08/13/24 13:21) HIVES penicillin V Allergy (Unknown, Verified 08/13/24 13:21) Hives prednisone [Prednisone] Adverse Reaction (Intermediate, Verified 08/13/24 13:21) ALTERED MENTAL STATUS, confusion Medication List - Last Reconciled 08/13/24 by Tosha Gan MD atorvastatin 20 mg PO BEDTIME 90 days bupropion HCl XL 150 mg PO QAM 90 days cholecalciferol (vitamin D3) 50 mcg PO DAILY denosumab (Prolia) 60 mg subcut [id number] losartan 25 mg PO DAILY 90 days omeprazole 20 mg PO DAILY HPI Comments Details: Patient is a 63-year-old female with hypertension and hyperlipidemia who presents for follow up of osteoporosis Interval History: Patient last seen 06/2024. At that time she was being evaluated for newly diagnosed osteoporosis based on DEXA scan. She received denosumab 06/2024. Today she is here for follow up Denies any falls or fractures Rheumatologic History: Osteoporosis. Started prolia 06/2024 Risk Factor Assessment: ? Age: 63 years ? Race: ? Menarche: 14 years - 40 years (early menopause) ? Family history including hip fracture: mom with osteoporosis, no hip fracture ? Low calcium/vitamin-D intake: Has good dairy intake, no vit D supplementation ? Estrogen deficiency: none ? Sedentary lifestyle: currently joined [employer] ? Cigarette smokin cigarrettes/ day since 15 years old. 24 pack years ? Excessive alcohol: no EtOh ? Excessive caffeine: drinks 1-2 cups of coffee High-risk medication assessment: ? Glucocorticoids: has a history of short course for allergic reaction ? Excess thyroid hormone: none No history of breast cancer No history of falls and no subsequent fractures Current Rheumatology Medication(s): Prolia 60mg SC every 6 months [facility] Medical History (Updated 08/13/24 @ 13:44 by Tosha Gan MD) Encounter for monitoring denosumab therapy Vitamin D deficiency Essential hypertension Hyperlipidemia Chronic GERD Tubular adenoma of colon Osteopenia Nicotine dependence, cigarettes, uncomplicated Surgical History History of total hysterectomy History of loop electrical excision procedure (LEEP) History of umbilical hernia repair History of blepharoplasty History of hammer toe correction History of tonsillectomy History of colonoscopy History of esophagogastroduodenoscopy (EGD) Family History Mother Diabetes Hypertension Father Diabetes CHF (congestive heart failure) Brother Lung cancer Brother Cirrhosis of liver Substance use disorder Social History Housing: House Alcohol intake: current Alcohol intake frequency: a few times a month Alcohol type: beer Patient Tobacco Use Status: Current everyday Tobacco user Tobacco use type: Cigarette Cigarette Packs Per Day: 1 Cigarettes Per Day: 15 e-Cigarette/Vaping Use: Never Used Second Hand Smoke Exposure: No service: No Current occupational status: employed Current occupational exposures/hazards: No Sexual orientation: Straight/Heterosexual Gender identity: Female Cognitive needs: No Hearing needs: No Vision needs: Yes Review of Systems Const Details: Review of Systems Constitutional: Denies fever, chills, weight loss ENT: Denies vision changes, eye pain or eye redness, dental caries, dry mouth GI: Denies nausea, vomiting, diarrhea, abdominal pain, change in BM Pulm: Denies SOB, [place], hemoptysis, wheezing Cards: Denies chest pain, palpitations Skin: Denies Raynaud's, rash, nail changes, photosensitivity, PER DIEM RN: Denies headaches, weakness, paresthesias, recurrent falls MSK: as per HPI All other systems reviewed and are unremarkable except noted above Physical Exam Vital Signs: Last Vital Signs Pulse 115 H 08/13/24 13:22 BP 115/74 08/13/24 13:22 Pulse Ox 98 08/13/24 13:22 Oxygen Delivery Method Room Air 08/13/24 13:22 BMI result Body Mass Index 27.6 Physical Examination CONSTITUITIONAL Patient alert and cooperative. Well appearing and in no apparent painful distress HEENT Conjunctiva and sclera clear. ?Pupils equal round and reactive to light. ?No lymphadenopathy. ?Normal dentition. No oral or nasal ulcers noted. No evidence of discoid rash to the leticia of ears CHEST/RESPIRATORY SYSTEM Normal respiratory effort and able to speak in complete sentences. ?Clear to auscultation bilaterally. ?No crackles, rales, rhonchi, wheezes heard. CARDIAC SYSTEM Regular rate and rhythm. ?S1 and S2 heard no murmurs. 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 ?Heberden's nodes noted to right 3rd DIPs. Deformity noted to left 5th PIP patient states that this was a voll eyball accident.. ?No synovitis noted to the MCPs, PIPs or DIPs. ?No tenderness to palpation of these joints. Wrists: ?Full range of motion at the wrists without pain. ?No tenderness to palpation or synovitis noted to the wrists. Elbows: Full range of motion without pain. No tenderness, weakness, swelling, increased warmth or erythema. Shoulders: Full range of motion without pain. No tenderness, weakness, swelling, increased warmth or erythema. Hips: Full range of motion without pain. Hip bursa: No tenderness to palpation Knees: ?Full range of motion. ?No tenderness, swelling, increased warmth or erythema.?No effusion or crepitations Ankles: Full range of motion. ?No tenderness, swelling, increased warmth or erythema.? Feet: ?Negative squeeze test. ?No tenderness to palpation or swelling of the MTPs. Tender points:??No tenderness to palpation of the neck, shoulders, chest, elbows, hips, buttocks or knees. SKIN Skin intact without rashes. Results Reviewed Results Reviewed: Laboratory Tests 06/14/24 11:23 Sodium 140 Potassium 3.9 Chloride 104 Carbon Dioxide 26 BUN 17 H Creatinine 1.06 AST 38 H ALT 57 H Collgn I C-Telopeptide 194 25-OH Vitamin D Total 26 L PTH Intact 73.5 DEXA 05/2024 FINDINGS: LEFT FEMUR, NECK: Current: BMD 0.936 g/cm2, Z-score 0.2, T-score -0.7, normal. Prior: BMD 1.019 g/cm2. Baseline: BMD 0.965 g/cm2. LEFT FEMUR, TOTAL: Current: BMD 1.002 g/cm2, Z-score 0.6, T-score 0.0, normal, 1.1% decrease from previous, 2.5% increase from baseline (<5% change is not significant). Prior: BMD 1.013 g/cm2. Baseline: BMD 0.978 g/cm2. AP SPINE L1-L2 (excluding L3 and L4): The data of L1-L4 has been changed to exclude the L3 and L4 vertebral bodies, because significant degenerative change at these levels may cause overestimation of lumbar spine density. Current: BMD 0.816 g/cm2, Z-score -2.2, T-score -2.9, osteoporosis, 15.9% decrease from previous, 20.8% decrease from baseline (<5% change is not significant). Prior: BMD 0.970 g/cm2. Baseline: BMD 1.030 g/cm2. Assessment & Plan Assessment & Plan (1) Osteoporosis: Code(s): M81.0 - Age-related osteoporosis without current pathological fracture Category: Medical Qualifiers: Osteoporosis type: age-related Presence of current pathological fracture: without current pathological fracture Qualified Code(s): M81.0 - Age- related osteoporosis without current pathological fracture Plan: #Osteoporosis of the spine Patient with severe osteoporosis of the spine. No history of fractures. Has a history of GERD and other stomach issues. Concern for tolerance of oral bisphosphonates Continue with Prolia Plan - prolia SC every 6 months - Weight bearing exercises - Vit D supplementation - RTC November for Prolia injection - Labs before injection: CBC, CMP, vitamin-D, collagen peptide (2) Encounter for monitoring denosumab therapy: Code(s): Z51.81 - Encounter for therapeutic drug level monitoring; Z79.620 - intermediate accountant (current) use of immunosuppressive biologic Category: Medical Plan: #Long-term use of Denosumab Discussed with patient the risks and benefits of denosumab (Prolia) for the management of their osteoporosis Benefits include improved bone density, decreased fracture risk Risks include rapid bone loss if denosumab stopped, osteonecrosis of the jaw especially in patients with poor oral hygiene/diabetes/use of glucocorticoids/age greater than 65 years, atypical femoral fractures, injection site reactions. Mild increased risk of infections due to RANKL on T helper cells, increased risk of hypocalcemia especially in CKD patients Keep vitamin-D at least 35 ng/mL Advised to delay non emergent dental procedures to toward the end of the 6 month cycle and if they plan to stop denosumab would need to continue antiresorptive to maintain the effects of denosumabe Plan I spent 20 minutes reviewing the record and labs, seeing the patient, discussing the treatment plan and documenting in the medical record Orders: Orders Collagen Type I C-Telopeptide 12/01/24 E55.9 - Vitamin D deficiency, unspecified, M81.0 - Age-related osteoporosis without current pathological fracture, Z51.81 - Encounter for therapeutic drug level monitoring, Z79.620 - intermediate accountant (current) use of immunosuppressive biologic Comprehensive Met. Panel 12/01/24 E55.9 - Vitamin D deficiency, unspecified, M81.0 - Age-related osteoporosis without current pathological fracture, Z51.81 - Encounter for therapeutic drug level monitoring, Z79.620 - [facility] (current) use of immunosuppressive biologic Vitamin D 25-OH Total 12/01/24 E55.9 - Vitamin D deficiency, unspecified, M81.0 - Age-related osteoporosis without current pathological fracture, Z51.81 - E ncounter for therapeutic drug level monitoring, Z79.620 - [facility] (current) use of immunosuppressive biologic Complete Blood Count Auto Diff 12/01/24 E55.9 - Vitamin D deficiency, unspecified, M81.0 - Age-related osteoporosis without current pathological fracture, Z51.81 - Encounter for therapeutic drug level monitoring, Z79.620 - [facility] (current) use of immunosuppressive biologic Coding Level of Care Code Est Pt Level 3 (83825) Diagnoses Age-related osteoporosis without current pathological fracture M81.0 Osteoporosis type: age-related Presence of current pathological fracture: without current pathological fracture Encounter for monitoring denosumab therapy Z51.81; Z79.620
[2024-08-13 13:22] VITALS: BP 115/74; PULSE 115; O2SAT 98; BMI 27.6
--- OUTSIDE RECORDS SUMMARY | 2024-08-13 14:34 | XMS_ITS ---
Author Organization [facility] Wilfrido doyle [place] Address [address] [place] [address] Care Team Providers Care Oil Dispatcher Name Role Phone Brian Mcdonald MD Primary Care Provider UnavailCorey Mendenhall [phone] REASON FOR VISIT heard about your fdc Problems No Known Problems Encounters Encounter Location Date Provider Diagnosis [address] [address] 01/21/2024 Corey Avitia Plan Of Treatment No Information Progress Notes * Eunice TUBBS ADOB:1960 (63 yo F)Acc No.[id number]:01/21/2024 Patient:?Eunice Tubbs :1960???Age:63 Y???Sex:Female Address:[address] [place] [address] [place], [address] * true * Date:? Generated for Marthai lesa/Florentin/eTransmitting on:?08/13/2024 02:33 PM EST
--- OUTSIDE RECORDS SUMMARY | 2024-08-13 14:34 | XMS_ITS | Patient Health Record ---
Author Organization [facility] Address [address] [place] [address] Care Team Providers Care Risk Officer Name Role Phone Brian Mcdonald MD Primary Care Provider Corey Zambrano [phone] Allergies Allergen (clinical drug ingredient) Drug/Non Drug Allergy documented on EMR Reaction Allergy Type Onset Date Status amoxicillin Amoxicillin Unknown Drug Allergy Act dylon PredniSONE Unknown Drug Allergy Active Reason For Referral No Information Medications Medication SIG (Take, Route, Frequency, Duration) Notes Start Date End Date Status Crestor 10 MG 1 tablet Orally Once a day for 30 day(s) Active Problems Problem Type SNOMED Code ICD Code Onset Dates Problem Status W/U Status Risk Notes Problem Onychomycosis (020278629) Onychomycosis (110.1) Active confirmed Problem Hammer toe (555934195) Hammer toe (735.4) Active confirmed Encounters Encounter Location Date Provider Diagnosis [facility] [address] [place] [address] 01/21/2024 Corey Avitia Plan Of Treatment Pending Test Test Name Order Date X ray : Foot, right 3V 03/09/2011 Insurance Providers Payer Name Payer Address Payer Phone Subscriber Number Group Number Insured Name Patient Relationship to Insured Coverage Start Date Coverage End Date [facility] [address] [facility] [place] [id number] Eunice Tubbs Self - patient is the insured Medical (General) History Medical History History ICD Code mumps measles hernia chicken pox hyperlipidemia
--- OUTSIDE RECORDS SUMMARY | 2024-08-13 14:34 | XMS_ITS | Patient Health Record ---
Author Organization [facility] Address [address] [place] [address] Support Name Relationship Address Phone JANINE VERA Guarantor Unknown [phone] Reason For Referral No Information Medications Medication SIG (Take, Route, Fr equency, Duration) Notes Start Date End Date Status Crestor 1 ORAL daily for -3 Miguel-MJ 08/22/2012 Active PriLOSEC OTC 20MG 1 ORAL twice daily for -3 Miguel-MJ 2011 Active Multivitamins 1 ORAL daily for -3 Miguel-MJ 08/22/2012 Active Problems Problem Type SNOMED Code ICD Code Onset Dates Problem Status W/U Status Risk Notes Problem Candidal vulvovaginitis (04864433) Candidiasis of vulva and vagina (112.1) Active confirmed Diag Problem Hyperlipidemia (13697355) Other and unspecified hyperlipidemia (272.4) Active confirmed Major Problem Diaphragmatic hernia (66501115) Diaphragmatic hernia without mention of obstruction or gangrene (553.3) Active confirmed Other Problem Menopausal symptom (55486472) Symptomatic menopausal or female climacteric states (627.2) Active confirmed Major Problem Gynecological examination normal (018841277181271) Routine gynecological examination (V72.31) Active confirmed Major Problem Screening for malignant neoplasm of colon (587897429) Special screening for malignant neoplasms, colon (V76.51) Active confirmed Major Plan Of Treatment No Information Insurance Providers Payer Name Payer Address Payer Phone Subscriber Number Group Number Insured Name Patient Relationship to Insured Coverage Start Date Coverage End Date [facility] [address] [place] [place] [id number] JANINE VERA Self - patient is the insured
== END 2024-08-13 13:44 | disposition home or self-care (01) ==
PROVIDERS: PCP Internal Medicine; Visit Provider Student in an Organized Health Care Education/Training Program
DX: M81.0 Age-related osteoporosis without current pathological fracture (principal); Z51.81 Encounter for therapeutic drug level monitoring; Z79.620 Long term (current) use of immunosuppressive biologic
CPT/HCPCS: 99213

== ENCOUNTER → 2024-08-13 13:13 | Outpatient (BNVA) | payer MEDICARE, SELFPAY | PROVIDERS: PCP Internal Medicine; Visit Provider Student in an Organized Health Care Education/Training Program | DX: M81.0 Age-related osteoporosis without current pathological fracture (principal); Z51.81 Encounter for therapeutic drug level monitoring; Z79.620 Long term (current) use of immunosuppressive biologic | CPT/HCPCS: 99212 ==

== ENCOUNTER 2024-08-28 08:00 | Outpatient (RCR) | payer MEDICARE, SELFPAY ==
--- NOTE | 2024-07-11 07:56 | MHC.PT.EP ---
[facility] [place] Office [place] Office [place] Office [address] [phone] F: [phone] F: [phone] F: [phone] F: [phone] Physical Therapy Plan of Care Date of Evaluation: 07/11/24 Date of Surgery: Diagnosis: trochanteric bursitis R hip Assessment: 64 y/o female referred to PT with trochanteric bursitis of R hip. S/s consistent with dx resulting in pain and difficulty with walking, stairs, and sleeping on that side. Examination shows decreased hip/lumbar ROM, decreased core/ hip strength, decreased HS/hip flexor/ gastoc length, pain, and impaired postural awareness. Recommend PT 2x/week for 5 weeks to address impairments, implement HEP, and optimize functional mobility Frequency and Duration: The patient will be seen 2x/week for 5 weeks Short Term Goals: 3 weeks I with HEP Senior Care Goals: 5 weeks I with HEP and self management of sx Pt will improve LEFS to 69/80 Pt will be able to ambulate > 20 minutes with pain < 3/10 Treatment Plan: Modalities to reduce pain, spasms and effusion. Manual therapy to restore motion and function. Therapeutic exercise to improve strength and flexibility. Neuromuscular re-education for posture and balance. Therapeutic activities to return to functional activities of daily living. Electronically signed by: Bonita Toscano PT Please sign and return to therapist. Thank you for your referral.
--- NOTE | 2024-09-18 14:57 | MHC.PT.DC ---
[facility] [place] [facility] [place] [facility] [place] [facility] [address] Ava Martinez [address] [phone] F: [phone] F: [phone] F: [phone] F: [phone] Physical Therapy Discharge Report Diagnosis: trochanteric bursitis R hip Date of Surgery: Date of Evaluation: 07/11/24 Date of Discharge: 09/18/24 Treatments to Date: 13 Cancellations to Date: 0 No Shows to Date: 0 Discharge Status: Achieved Goals Improved Function Independent with HEP Discharge Summary: Pt reports overall feeling better. Hip ROM WNL and improved hip strength. She has met all goals and is appropriate for HEP. Electronically signed by: Bonita Toscano PT Please sign and return to therapist. Thank you for your referral.
== END 2024-09-18 14:58 | disposition home or self-care (01) ==
LOC: HO.PTCHIC 08:00
PROVIDERS: PCP Internal Medicine
DX: M70.61 Trochanteric bursitis, right hip (principal)
CPT/HCPCS: 97110; 97112; 97140; 97161

== ENCOUNTER 2024-12-11 15:02 | Outpatient (AMB) | payer MEDICARE, SELFPAY ==
--- NOTE | 2024-12-11 15:06 | A.OFFPC_ITS ---
Vital Signs 12/11/24 15:11 Height 5 ft 9 in Weight 187 lb BMI 27.6 BP 132/80 Blood Pressure Location Lt brachial Position Sitting Intake Visit Reasons: BP 6months Intake Note: Patient here for a follow up BP Credit Collections Analyst Required: No Accompanied by: Self / Same As Patient Allergies amoxicillin [Amoxicillin] Allergy (Intermediate, Verified 12/11/24 15:17) HIVES penicillin V Allergy (Unknown, Verified 12/11/24 15:17) Hives prednisone [Prednisone] Adverse Reaction (Intermediate, Verified 12/11/24 15:17) ALTERED MENTAL STATUS, confusion Medication List - Last Reconciled 12/11/24 by Kateryna Rain MD atorvastatin 20 mg PO BEDTIME 90 days bupropion HCl XL 150 mg PO QAM 90 days cholecalciferol (vitamin D3) 50 mcg PO DAILY denosumab (Prolia) 60 mg subcut [id number] losartan 25 mg PO DAILY 90 days omeprazole 20 mg PO DAILY Tobacco use date assessed: 12/11/24 Fall risk assessment: No Falls in past year Last assessed Fall Risk: 12/11/24 Dental Screening Dental Screen Date: 12/11/24 Did you have a dental visit in the last 12 months?: Yes Did you have a dental problem in the last 6 months where you did not have access to dental care?: No Was dental information given to patient?: Patient has dentist HPI HPI Comments History of Present Illness Details The patient is a 64-year-old female presenting with a follow-up of her blood pressure and other conditions. Her blood pressure is currently well- controlled, and she is on losartan 25 mg for management. She is scheduled for a wellness exam in January, with fasting blood work planned a week prior. The patient has a history of osteoporosis and is receiving Prolia injections, with her next dose scheduled for the following week. She reports feeling well after the injections, with no significant adverse effects noted. The patient has a history of tobacco use, smoking approximately 15 cigarettes per day. She is currently on bupropion 150 mg daily, which she feels helps with her mood but not significantly with smoking cessation. She is considering trying Chantix again, despite previous experiences of vivid nightmares. The patient has a history of multiple surgeries, including a hysterectomy, LEEP procedure, umbilical hernia repair, blepharoplasty, hammertoe correction, and tonsillectomy. Her hysterectomy was performed due to suspicion of cancer, which was not confirmed post-surgery. Family history is significant for diabetes, hypertension, and congestive heart failure in her parents. She occasionally consumes alcohol, approximately once a month, and has had elevated hemoglobin and total protein levels in the past, likely related to smoking. [facility] Medical History (Updated 12/11/24 @ 15:31 by Kateryna Rain MD) Vitamin D deficiency Essential hypertension Hyperlipidemia Chronic GERD Tubular adenoma of colon Osteopenia Nicotine dependence, cigarettes, uncomplicated Surgical History History of total hysterectomy History of loop electrical excision procedure (LEEP) History of umbilical hernia repair History of blepharoplasty History of hammer toe correction History of tonsillectomy History of colonoscopy History of esophagogastroduodenoscopy (EGD) Family History Mother Diabetes Hypertension Father Diabetes CHF (congestive heart failure) Brother Lung cancer Brother Cirrhosis of liver Substance use disorder Social History Housing: House Alcohol intake: current Alcohol intake frequency: a few times a month Alcohol type: beer Patient Tobacco Use Status: Current everyday Tobacco user Tobacco use type: Cigarette Cigarette Packs Per Day: 1 Cigarettes Per Day: 15 e-Cigarette/Vaping Use: Never Used Second Hand Smoke Exposure: No service: No Current occupational status: employed Current occupational exposures/hazards: No Sexual orientation: Straight/Heterosexual Gender identity: Female Cognitive needs: No Hearing needs: No Vision needs: Yes Questionnaire PHQ-9 Over the last 2 weeks, how often have you been bothered by any of the following problems? 1. Little interest or pleasure in doing things: not at all 2. Feeling down, depressed, or hopeless: not at all 3. Trouble falling or staying asleep, or sleeping too much: not at all 4. Feeling tired or having little energy: not at all 5. Poor appetite or overeating: not at all 6. Feeling bad about yourself - or that you are a failure or have let yourself or your family down: not at all 7. Trouble concentrating on things, such as reading the newspaper or watching television: not at all 8. Moving or speaking so slowly that other people could have noticed. Or the opposite - being so fidgety or restless that you have been moving around a lot more than usual: not at all 9. Thoughts that you would be better off or of hurting yourself in some way: not at all Total score: 0 Depression Screening Interpretation: Negative Depression Screening Done: Yes 47887 - PHQ-9 Billing: Yes Source: Developed by Drs. Michael Flores, Melinda Infante, Rohan Cage and colleagues, with an educational tyler from [employer]. Thrive Questionnaire Date Thrive assessed: 12/11/24 I am a: Patient What is your living situation today?: I have a steady place to live Within the past 12 months, did the food you bought not last and you didn't have the money to get more?: Never true Within the past 12 months, did you worry whether your food would run out before you got money to buy more?: Never true Do you have trouble paying for medicines?: No Do you have trouble getting transportation to medical appointments?: No Do you have trouble paying your heating and electricity bill?: No Do you have trouble taking care of your child, family member or friend?: No Do you have trouble with day-to-day activities such as bathing, preparing meals, shopping, managing finances, etc.?: No Are you currently unemployed and looking for a job?: No Are you interested in more education?: I choose not to answer this question Please select the resources that you would like help with: None Currently or been in a relationship where the following occur: No concerns reported THRIVE Score: 0 AUDIT C Alcohol Use Questionnaire (AUDIT-C) 1. How often do you have a drink containing alcohol?: Monthly or less 2. How many drinks containing alcohol do you have on a typical day when you are drinking?: 1 or 2 3. How often do you have six or more drinks on one occasion?: Never Total Score: 1 Score Reviewed/Action Taken: No BROOKLYNN-7 AMB Questionnaire BROOKLYNN-7 Date BROOKLYNN - 7 assessed: 12/11/24 Feeling nervous, anxious, or on edge: 0 = Not at all Not being able to stop or control worryin = Not at all Worrying too much about different things: 0 = Not at all Trouble relaxin = Not at all Being so restless that it is hard to sit still: 0 = Not at all Becoming easily annoyed or irritable: 0 = Not at all Feeling afraid as if something awful might happen: 0 = Not at all Total BROOKLYNN-7 score (0-4 normal; 5-9 mild; 10-14 moderate; 15-21 severe): 0 Source: Developed by Drs. Michael Flores, Melinda Infante, Rohan Cage and colleagues, with an educational tyler from [employer]. BROOKLYNN-7 Assessment Billing BROOKLYNN-7 Assessment Tool: BROOKLYNN-7 Assessment 91155 Review of Systems Const All systems reviewed & are unremarkable except as noted in HPI and below Card Denies chest pain at rest, Denies chest pain with activity, Denies edema, Denies irregular heart rhythm, Denies claudication, Denies dyspnea, Denies dyspnea on exertion, Denies orthopnea, Denies paroxysmal nocturnal dyspnea and Denies slow heart rate Resp Denies cough, Denies dyspnea and Denies dyspnea on exertion GI Denies abdominal pain, Denies change in bowel habits, Denies excessive flatus, Denies nausea and Denies vomiting Denies urinary incontinence, Denies urinary hesitancy and Denies urinary urgency Musc Denies abnormal gait, Denies atrophy, Denies deformity and Denies limited range of motion Skin/Breast Denies bleeding lesions, Denies changing lesions and Denies rash Neuro Denies abnormal gait and Denies lack of coordination Physical exam (Primary Care) Vital Signs: Last Vital Signs BP 132/80 12/11/24 15:11 BMI result Body Mass Index 27.6 Tobacco/Smoking Status: Tobacco use Status Tobacco use date assessed 01/31/24 12/11/24 15:09 Patient Tobacco Use Status Current everyday Tobacco 12/11/24 15:09 Tobacco use type Cigarette 12/11/24 15:09 e-Cigarette/Vaping Use Never Used 12/11/24 15:09 Are you ready to quit: Yes Tobacco cessation counseling provided: Yes Items discussed: Nicotine replacement and QuitWorks Relapse Prevention: discussed the importance of a supportive environment, discussed extending NRT, discussed negative mood or depression after quitting, weight gain after smoking is common and discussed dietary, exercise and/or lifestyle changes Number of minutes spent counselin CPT code: 95109 - 4-10 Minutes PHQ-9: PHQ-9 Score PHQ-9: Total score 0 12/11/24 15:09 Depression Screening Interpretation: Negative Thrive Assessment: Date of Thrive Assessment Date Thrive assessed 12/11/24 12/11/24 15:09 Currently or been in a relationship where the following occur: No concerns reported Resp Effort & Inspection: normal respiratory effort Auscultation: clear to auscultation bilaterally Cardio Jugular venous distension: no JVD Rate: regular rate Rhythm: regular rhythm Heart sounds: S1 normal heart sound present and S2 normal heart sound present Extrem General: Yes full ROM Coding Level of Care Code Est Pt Level 4 (72497) Complex EM visit Add On G2211 Diagnoses Essential hypertension I10 Hyperlipidemia E78.5 Vitamin D deficiency E55.9 Age-related osteoporosis without current pathological fracture M81.0 Osteoporosis type: age-related Presence of current pathological fracture: without current pathological fracture Elevated total protein R77.8 Nicotine dependence, cigarettes, uncomplicated F17.210 Chronic GERD K21.9 Additional Codes PHQ-9 - 21110 - PHQ-9 Billing: Yes ([id number]) BROOKLYNN-7 Assessment Billing - BROOKLYNN-7 Assessment Tool: BROOKLYNN-7 Assessment 30615 ([id number]) Vital Signs *Quality* - CPT code: 34679 - 4-10 Minutes ([id number]) Time Spent (min) 24 Assessment & Plan Assessment & Plan (1) Essential hypertension: Code(s): I10 - Essential (primary) hypertension Category: Medical (2) Hyperlipidemia: Code(s): E78.5 - Hyperlipidemia, unspecified Category: Medical (3) Vitamin D deficiency: Code(s): E55.9 - Vitamin D deficiency, unspecified Category: Medical (4) Osteoporosis: Code(s): M81.0 - Age-related osteoporosis without current pathological fracture Category: Medical Qualifiers: Osteoporosis type: age-related Presence of current pathological fracture: without current pathological fracture Qualified Code(s): M81.0 - Age- related osteoporosis without current pathological fracture (5) Elevated total protein: Code(s): R77.8 - Other specified abnormalities of plasma proteins Category: Medical (6) Nicotine dependence, cigarettes, uncomplicated: Comment: [place] [facility] [place] noted RUL sub-pleural bleb measuring 1.1x1.6 and pulmonary nodules less than 5mm recommending 1yr follow up Code(s): F17.210 - Nicotine dependence, cigarettes, uncomplicated Category: Medical (7) Chronic GERD: Code(s): K21.9 - Gastro-esophageal reflux disease without esophagitis Category: Medical Plan The patient will continue with her current antihypertensive regimen of losartan 25 mg, as her blood pressure is well-controlled. She is scheduled for a wellness exam in January, with fasting blood work to be conducted a week prior to assess her overall health status, including cholesterol levels. For osteoporosis management, she will continue with Prolia injections, with her next dose scheduled for the following week. Regarding smoking cessation, the patient is considering restarting Chantix, with a dosage plan of 0.5 mg once daily for the first three days, then twice daily from day four, and eventually increasing to 1 mg as part of a three-month treatment plan. She is advised to use Myows as a supportive resource and to have gums available to manage potential mood changes during cessation. Preventative care includes scheduling a colonoscopy, as the last one was performed in 2016, and ensuring follow-up for elevated hemoglobin and total protein levels, likely related to smoking. Patient was informed and verbally consented to the use of an ambient scribe for clinic note documentation during this visit. Orders: Orders Complete Blood Count Auto Diff Today D64.9 - Anemia, unspecified Lipid Panel Today E78.5 - Hyperlipidemia, unspecified Vitamin D 25-OH Total Today E55.9 - Vitamin D deficiency, unspecified Protein Electrophoresis, Serum Today R77.8 - Other specified abnormalities of plasma proteins IRON PROFILE Today D64.9 - Anemia, unspecified Comprehensive [place]. Panel Fast Today I10 - Essential (primary) hypertension Medications: New varenicline tartrate administer on days 1, 2, and 3 of therapy 0.5 mg PO BID 28 days 56 tabs 0RF varenicline tartrate 1 mg PO BID 28 days 56 tabs 1RF varenicline tartrate 1 mg PO BID 28 days 56 tabs 1RF
[2024-12-11 15:11] VITALS: BP 132/80; BMI 27.6
--- OUTSIDE RECORDS SUMMARY | 2024-12-11 17:42 | XMS_ITS | Patient Health Record ---
Author Organization [facility] Address [address] [place] [address] Support Name Relationship Address Phone MYKE VERAAN Guarantor Unknown [phone] Reason For Referral No Information Medications Medication [...] W/U Status Risk Notes Problem Candidal vulvovaginitis (54000887) Candidiasis of vulva and vagina (112.1) Active confirmed Diag Problem Hyperlipidemia (26883297) Other and unspecified hyperlipidemia (272.4) Active confirmed Major Problem Diaphragmatic hernia (28400356) Diaphragmatic hernia without mention of obstruction or gangrene (553.3) Active confirmed Other Problem Menopausal symptom (64073588) Symptomatic menopausal or female climacteric states (627.2) Active confirmed Major Problem Routine gynecological examination (V72.31) Active confirmed Major Problem Screening for malignant neoplasm of colon (739514020) Special screening for malignant neoplasms, colon (V76.51) Active confirmed Major Plan Of Treatment No Information Insurance Providers Payer Name Payer Address Payer Phone Subscriber Number Group Number Insured Name Patient Relationship to Insured Coverage Start Date Coverage End Date [facility] [address] [place] [address] [phone] [id number] JANINE VERA Self - patient is the insured
== END 2024-12-11 15:31 | disposition home or self-care (01) ==
LOC: HO.HMCH 15:03
PROVIDERS: PCP Internal Medicine; Visit Provider Internal Medicine
DX: I10 Essential (primary) hypertension (principal); E78.5 Hyperlipidemia, unspecified; E55.9 Vitamin D deficiency, unspecified; M81.0 Age-related osteoporosis without current pathological fracture; R77.8 Other specified abnormalities of plasma proteins; F17.210 Nicotine dependence, cigarettes, uncomplicated; K21.9 Gastro-esophageal reflux disease without esophagitis

== ENCOUNTER → 2024-12-11 15:02 | Outpatient (BNVA) | payer MEDICARE, SELFPAY | PROVIDERS: PCP Internal Medicine; Visit Provider Internal Medicine | DX: I10 Essential (primary) hypertension (principal); E78.5 Hyperlipidemia, unspecified; E55.9 Vitamin D deficiency, unspecified; M81.0 Age-related osteoporosis without current pathological fracture; R77.8 Other specified abnormalities of plasma proteins; K21.9 Gastro-esophageal reflux disease without esophagitis; F17.210 Nicotine dependence, cigarettes, uncomplicated; Z71.6 Tobacco abuse counseling | CPT/HCPCS: 96127; 99212 ==

== ENCOUNTER 2024-12-15 07:53 | Outpatient (REF) | payer MEDICARE, SELFPAY ==
--- OUTSIDE RECORDS SUMMARY | 2024-12-15 07:58 | XMS_ITS | Patient Health Record ---
Author Organization [facility] Address [address] [place] [address] Support Name Relationship Address Phone JANINE VERA Guarantor Unknown [phone] Reason For Referral No Information Medications Medication [...] W/U Status Risk Notes Problem Candidal vulvovaginitis (24962085) Candidiasis of vulva and vagina (112.1) Active confirmed Diag Problem Hyperlipidemia (95325443) Other and unspecified hyperlipidemia (272.4) Active confirmed Major Problem Diaphragmatic hernia (05849045) Diaphragmatic hernia without mention of obstruction or gangrene (553.3) Active confirmed Other Problem Menopausal symptom (48653805) Symptomatic menopausal or female climacteric states (627.2) Active confirmed Major Problem Gynecological examination normal (833454273043576) Routine gynecological examination (V72.31) Active confirmed Major Problem Screening for malignant neoplasm of colon (688267155) Special screening for malignant neoplasms, colon (V76.51) Active confirmed Major Plan Of Treatment No Information Insurance Providers Payer Name Payer Address Payer Phone Subscriber Number Group Number Insured Name Patient Relationship to Insured Coverage Start Date Coverage End Date [facility] [address] [place] [id number] JANINE VERA Self - patient is the insured
[2024-12-15 08:03] LABS: MANUAL DIFF FLAG NO
[2024-12-15 08:07] LABS: Basophils Absolute Auto 0.1 X10*3/uL (0.0-0.2); Basophils Percent Auto 0.9 % (0-2); Eosinophils Absolute Auto 0.1 X10*3/uL (0.0-0.4); Eosinophils Percent Auto 1.7 % (0-4); Hematocrit 47.5 % (37.0-47.0); Imm Gran Abs Auto 0.02 X10*3/uL (0.00-0.03); Imm Gran Pct Auto 0.3 % (0.0-0.4); Mean Corpuscular HGB Conc 33.7 g/dl (31.0-35.0); Mean Corpuscular Hemoglobin 32.4 pg (27.0-33.0); Mean Corpuscular Volume 96.2 fL (80.0-98.0); Mean Platelet Volume 9.2 fL (9.4-12.3); Monocytes Absolute Auto 0.6 X10*3/uL (0.1-1.2); Monocytes Percent Auto 8.6 % (2-11); Neutrophils Absolute Auto 4.3 x10*3/uL (2.0-8.3); Neutrophils Percent Auto 60.5 % (45-73); Platelet Count 207 X10*3/uL (160-400); Red Blood Count 4.94 X10*6/uL (4.20-5.50); Red Cell Distribution Width 12.3 % (11.0-16.0)
[2024-12-15 08:38] LABS: Alanine Aminotransferase 22 U/L (0-31); Albumin Level 4.6 g/dL (3.5-5.0); Alkaline Phosphatase 75 U/L (39-117); Anion Gap 14 (12-20); Aspartate Amino Transferase 26 U/L (5-31); Bilirubin Total 0.5 mg/dL (0.0-1.0); Blood Urea Nitrogen 16 mg/dL (9-16); Carbon Dioxide 26 mmol/L (22-29); Chloride 108 mmol/L (96-108); Estimated Glomerular Filt Rate 60; Glucose Random 110 mg/dL (60-115); Potassium 4.7 mmol/L (3.3-5.1); Sodium 143 mmol/L (135-145)
[2024-12-15 08:52] LABS: Vitamin D 25-OH Total 53.3 ng/mL (>30)
[2024-12-17 10:09] LABS: IgA 99 mg/dL (70-320); IgG 734 mg/dL (600-1540); IgM 115 mg/dL (50-300)
[2024-12-19 15:33] LABS: Vitamin D 25-OH, D2 <4 ng/mL; Vitamin D 25-OH, D3 42 ng/mL; Vitamin D 25-OH, Total 42 ng/mL (30-100)
[2024-12-20 17:19] LABS: Collagen Type I C-Telopeptide 179 pg/mL (see note)
== END 2024-12-15 07:54 | disposition home or self-care (01) ==
LOC: HO.LAB 07:53
PROVIDERS: PCP Internal Medicine; Visit Provider Student in an Organized Health Care Education/Training Program
DX: Z51.81 Encounter for therapeutic drug level monitoring (principal); M81.0 Age-related osteoporosis without current pathological fracture; E55.9 Vitamin D deficiency, unspecified; R77.8 Other specified abnormalities of plasma proteins; Z79.620 Long term (current) use of immunosuppressive biologic
CPT/HCPCS: 36415; 80053; 82306; 82523; 82784; 85025; 86334

== ENCOUNTER 2024-12-16 08:20 | Outpatient (AMB) | payer MEDICARE, SELFPAY ==
--- OUTSIDE RECORDS SUMMARY | 2024-12-16 08:31 | XMS_ITS | Patient Health Record ---
Author Organization [facility] Address [address] [place] [address] Support Name Relationship Address Phone JANINE VERA Guarantor Unknown [phone] Reason For Referral No Information Medications Medication [...] W/U Status Risk Notes Problem Candidal vulvovaginitis (73995702) Candidiasis of vulva and vagina (112.1) Active confirmed Diag Problem Hyperlipidemia (33909282) Other and unspecified hyperlipidemia (272.4) Active confirmed Major Problem Diaphragmatic hernia (94974022) Diaphragmatic hernia without mention of obstruction or gangrene (553.3) Active confirmed Other Problem Menopausal symptom (73318236) Symptomatic menopausal or female climacteric states (627.2) Active confirmed Major Problem Gynecological examination normal (990152319094487) Routine gynecological examination (V72.31) Active confirmed Major Problem Screening for malignant neoplasm of colon (214847788) Special screening for malignant neoplasms, colon (V76.51) Active confirmed Major Plan Of Treatment No Information Insurance Providers Payer Name Payer Address Payer Phone Subscriber Number Group Number Insured Name Patient Relationship to Insured Coverage Start Date Coverage End Date [facility] [address] [place] [place] [id number] JANINE VERA Self - patient is the insured
--- NOTE | 2024-12-16 08:37 | AM.OFFVISNUR ---
Intake Visit Reasons: prolia Allergies amoxicillin [Amoxicillin] Allergy (Intermediate, Verified 12/11/24 15:17) HIVES penicillin V Allergy (Unknown, Verified 12/11/24 15:17) Hives prednisone [Prednisone] Adverse Reaction (Intermediate, Verified 12/11/24 15:17) ALTERED MENTAL STATUS, confusion Office Meds Prolia 60 mg/mL subcutaneous syringe Performing Provider: Tosha Gan MD Performing Location: [facility] [place] Endocr[facility]ology Administered by: Yessenia Jeff RN on 12/16/24 08:37 Dose Route Admin Location Dispensed Lot Number Expiration Date [facility] Plasterer Spot 60 mg subcut right upper arm 1 mL [id number] 03/01/27 48886-720-26 AMGEN Assessment & Plan Assessment & Plan Orders: Orders AMB Denosumab Injection Practice Supplied Today M81.0 - Age-related osteoporosis without current pathological fracture Medications: New Prolia (denosumab) 60 mg subcut ONCE 1 mL 0RF NS M81.0 - Age-related osteoporosis without current pathological fracture Coding
== END 2024-12-16 08:33 | disposition home or self-care (01) ==
LOC: HO.RHE 08:21
PROVIDERS: PCP Internal Medicine
DX: M81.0 Age-related osteoporosis without current pathological fracture (principal)

== ENCOUNTER → 2024-12-16 08:20 | Outpatient (BNVA) | payer MEDICARE, SELFPAY | PROVIDERS: PCP Internal Medicine | DX: M81.0 Age-related osteoporosis without current pathological fracture (principal) | CPT/HCPCS: 96372; J0897 ==

== ENCOUNTER 2024-12-24 13:13 | Outpatient (AMB) | payer MEDICARE, SELFPAY ==
[2024-12-24 13:15] VITALS: BP 120/70; PULSE 83; O2SAT 98; BMI 28.3
--- NOTE | 2024-12-24 13:15 | A.OFFVIS_ITS ---
Vital Signs 12/24/24 13:15 Height 5 ft 9 in Weight 191 lb 9.307 oz BMI 28.3 BP 120/70 Blood Pressure Location Lt brachial Position Sitting Pulse 83 Pulse Source Pulse Oximeter Pulse Oximetry (%) 98 Oxygen Delivery Method Room Air Intake Visit Reasons: osteoporosis Intake Note: Patient last seen by Doctor Tosha Gan on 08/13/24. Presents today for Osteoporosis/Prolia injection follow up and test results. Allergies amoxicillin (Amoxicillin) Allergy (Intermediate, Verified 12/24/24 13:22) HIVES penicillin V Allergy (Unknown, Verified 12/24/24 13:22) Hives prednisone (Prednisone) Adverse Reaction (Intermediate, Verified 12/24/24 13:22) ALTERED MENTAL STATUS, confusion Medication List - Last Reconciled 12/24/24 by Tosha Gan MD atorvastatin 20 mg PO BEDTIME 90 days bupropion HCl XL 150 mg PO QAM 90 days cholecalciferol (vitamin D3) 50 mcg PO DAILY denosumab (Prolia) 60 mg subcut [id number] losartan 25 mg PO DAILY 90 days omeprazole 20 mg PO DAILY 90 days HPI Comments Details: Patient is a 63-year-old female with hypertension and hyperlipidemia who presents for follow up of osteoporosis Interval History: Patient last seen 08/13/24 with me. At that time she was following up for her osteoporosis. Doing well without falls or fractures Today, Continues to do well Denies any falls or fractures Rheumatologic History: Osteoporosis. Started prolia 06/2024 Risk Factor Assessment: ? Age: 63 years ? Race: ? Menarche: 14 years - 40 years (early menopause) ? Family history including hip fracture: mom with osteoporosis, no hip fracture ? Low calcium/vitamin-D intake: Has good dairy intake, no vit D supplementation ? Estrogen deficiency: none ? Sedentary lifestyle: currently joined [employer] ? Cigarette smokin cigarrettes/ day since 15 years old. 24 pack years ? Excessive alcohol: no EtOh ? Excessive caffeine: drinks 1-2 cups of coffee High-risk medication assessment: ? Glucocorticoids: has a history of short course for allergic reaction ? Excess thyroid hormone: none No history of breast cancer No history of falls and no subsequent fractures Current Rheumatology Medication(s): Prolia 60mg SC every 6 months [facility] Medical History Vitamin D deficiency Essential hypertension Hyperlipidemia Chronic GERD Tubular adenoma of colon Osteopenia Nicotine dependence, cigarettes, uncomplicated Surgical History History of total hysterectomy History of loop electrical excision procedure (LEEP) History of umbilical hernia repair History of blepharoplasty History of hammer toe correction History of tonsillectomy History of colonoscopy History of esophagogastroduodenoscopy (EGD) Family History Mother Diabetes Hypertension Father Diabetes CHF (congestive heart failure) Brother Lung cancer Brother Cirrhosis of liver Substance use disorder Social History Housing: House Alcohol intake: current Alcohol intake frequency: a few times a month Alcohol type: beer Patient Tobacco Use Status: Current everyday Tobacco user Tobacco use type: Cigarette Cigarette Packs Per Day: 1 Cigarettes Per Day: 15 e-Cigarette/Vaping Use: Never Used Second Hand Smoke Exposure: No service: No Current occupational status: employed Current occupational exposures/hazards: No Sexual orientation: Straight/Heterosexual Gender identity: Female Cognitive needs: No Hearing needs: No Vision needs: Yes Review of Systems Const Details: Review of Systems Constitutional: Denies fever, chills, weight loss ENT: Denies vision changes, eye pain or eye redness, dental caries, dry mouth GI: Denies nausea, vomiting, diarrhea, abdominal pain, change in BM Pulm: Denies SOB, [place], hemoptysis, wheezing Cards: Denies chest pain, palpitations Skin: Denies Raynaud's, rash, nail changes, photosensitivity, CURB ATTENDANT: Denies headaches, weakness, paresthesias, recurrent falls MSK: as per HPI All other systems reviewed and are unremarkable except noted above Physical Exam Vital Signs: BMI result Body Mass Index 28.3 Vital signs reviewed Physical Examination CONSTITUITIONAL Patient alert and cooperative. Well appearing and in no apparent painful distress MSK Hands: ?Good lay out worker strength bilaterally. ?Heberden's nodes noted to right 3rd DIPs. Deformity noted to left 5th PIP patient states that this was a volleyball accident.. ?No synovitis noted to the MCPs, PIPs or DIPs. ?No tenderness to palpation of these joints. Wrists: ?Full range of motion at the wrists without pain. ?No tenderness to palpation or synovitis noted to the wrists. Elbows: Full range of motion without pain. No tenderness, weakness, swelling, increased warmth or erythema. Shoulders: Full range of motion without pain. No tenderness, weakness, swelling, increased warmth or erythema. Knees: ?Full range of motion. ?No tenderness, swelling, increased warmth or erythema.?No effusion or crepitations Ankles: Full range of motion. ?No tenderness, swelling, increased warmth or erythema.? Feet: ?Negative squeeze test. ?No tenderness to palpation or swelling of the MTPs. Tender points:??No tenderness to palpation of the neck, shoulders, chest, el bows, hips, buttocks or knees. SKIN Skin intact without rashes. Results Reviewed Results Reviewed: Laboratory Tests 06/14/24 12/15/24 11:23 08:01 WBC 7.0 RBC 4.94 Hgb 16.0 Hct 47.5 H Plt Count 207 Sodium 143 Potassium 4.7 D Chloride 108 Carbon Dioxide 26 BUN 16 Creatinine 0.94 AST 26 ALT 22 Alkaline Phosphatase 75 Total Protein 7.0 Albumin 4.6 Collgn I C-Telopeptide 194 179 25-OH Vitamin D Total 42 DEXA 05/2024 FINDINGS: LEFT FEMUR, NECK: Current: BMD 0.936 g/cm2, Z-score 0.2, T-score -0.7, normal. Prior: BMD 1.019 g/cm2. Baseline: BMD 0.965 g/cm2. LEFT FEMUR, TOTAL: Current: BMD 1.002 g/cm2, Z-score 0.6, T-score 0.0, normal, 1.1% decrease from previous, 2.5% increase from baseline (<5% change is not significant). Prior: BMD 1.013 g/cm2. Baseline: BMD 0.978 g/cm2. AP SPINE L1-L2 (excluding L3 and L4): The data of L1-L4 has been changed to exclude the L3 and L4 vertebral bodies, because significant degenerative change at these levels may cause overestimation of lumbar spine density. Current: BMD 0.816 g/cm2, Z-score -2.2, T-score -2.9, osteoporosis, 15.9% decrease from previous, 20.8% decrease from baseline (<5% change is not significant). Prior: BMD 0.970 g/cm2. Baseline: BMD 1.030 g/cm2. Assessment & Plan Assessment & Plan (1) Osteoporosis: Comment: DEXA 06/2024. AP spine -2.9, Left femur neck -0.7, Left femur total 0.0 Code(s): M81.0 - Age-related osteoporosis without current pathological fracture Category: Medical Qualifiers: Osteoporosis type: age-related Presence of current pathological fracture: without current pathological fracture Qualified Code(s): M81.0 - Age- related osteoporosis without current pathological fracture Plan: #Osteoporosis of the spine Patient with severe osteoporosis of the spine. No history of fractures. Has a history of GERD and other stomach issues. Tolerating prolia. C-telopeptide trending down meaning less bone turn over. Continue with Prolia Plan - Prolia SC every 6 months - Weight bearing exercises - Vit D supplementation - RTC 6 months - Labs before visit: CMP, Vit D (2) Encounter for monitoring denosumab therapy: Code(s): Z51.81 - Encounter for therapeutic drug level monitoring; Z79.620 - penitentiary (current) use of immunosuppressive biologic Category: Medical Plan: #Long-term use of Denosumab Discussed with patient the risks and benefits of denosumab (Prolia) for the management of their osteoporosis Benefits include improved bone density, decreased fracture risk Risks include rapid bone loss if denosumab stopped, osteonecrosis of the jaw especially in patients with poor oral hygiene/diabetes/use of glucocorticoids/age greater than 65 years, atypical femoral fractures, injection site reactions. Mild increased risk of infections due to RANKL on T helper cells, increased risk of hypocalcemia especially in CKD patients Keep vitamin-D at least 35 ng/mL Advised to delay non emergent dental procedures to toward the end of the 6 month cycle and if they plan to stop denosumab would need to continue antiresorptive to maintain the effects of denosumabe Plan I spent 20 minutes reviewing the record and labs, seeing the patient, discussing the treatment plan and documenting in the medical record Orders: Orders Comprehensive Met. Panel 6 Months M81.0 - Age-related osteoporosis without current pathological fracture Vitamin D 25-OH Total 6 Months M81.0 - Age-related osteoporosis without current pathological fracture Coding Level of Care Code Est Pt Level 3 (97680) Complex EM visit Add On G2211 Diagnoses Age-related osteoporosis without current pathological fracture M81.0 Osteoporosis type: age-related Presence of current pathological fracture: without current pathological fracture Encounter for monitoring denosumab therapy Z51.81; Z79.620
--- OUTSIDE RECORDS SUMMARY | 2024-12-24 15:31 | XMS_ITS | Patient Health Record ---
Author Organization [facility] Address [address] [place] [address] Support Name Relationship Address Phone JANINE VERA Guarantor Unknown [phone] Reason For Referral No Information Medications Medication [...] W/U Status Risk Notes Problem Candidal vulvovaginitis (50701186) Candidiasis of vulva and vagina (112.1) Active confirmed Diag Problem Hyperlipidemia (74505451) Other and unspecified hyperlipidemia (272.4) Active confirmed Major Problem Diaphragmatic hernia (30097190) Diaphragmatic hernia without mention of obstruction or gangrene (553.3) Active confirmed Other Problem Menopausal symptom (77452168) Symptomatic menopausal or female climacteric states (627.2) Active confirmed Major Problem Gynecological examination normal (631765555873254) Routine gynecological examination (V72.31) Active confirmed Major Problem Screening for malignant neoplasm of colon (411417501) Special screening for malignant neoplasms, colon (V76.51) Active confirmed Major Plan Of Treatment No Information Insurance Providers Payer Name Payer Address Payer Phone Subscriber Number Group Number Insured Name Patient Relationship to Insured Coverage Start Date Coverage End Date [facility] [address] [facility] [place] [address] [id number] JANINE VERA Self - patient is the insured
== END 2024-12-24 13:53 | disposition home or self-care (01) ==
LOC: HO.RHE 13:14
PROVIDERS: PCP Internal Medicine; Visit Provider Student in an Organized Health Care Education/Training Program
DX: M81.0 Age-related osteoporosis without current pathological fracture (principal); Z51.81 Encounter for therapeutic drug level monitoring; Z79.620 Long term (current) use of immunosuppressive biologic
CPT/HCPCS: 99213; G2211

== ENCOUNTER → 2024-12-24 13:13 | Outpatient (BNVA) | payer MEDICARE, SELFPAY | PROVIDERS: PCP Internal Medicine; Visit Provider Student in an Organized Health Care Education/Training Program | DX: M81.0 Age-related osteoporosis without current pathological fracture (principal); Z51.81 Encounter for therapeutic drug level monitoring; Z79.620 Long term (current) use of immunosuppressive biologic | CPT/HCPCS: 99212 ==

== ENCOUNTER 2025-02-16 07:10 | Outpatient (REF) | payer MEDICARE, SELFPAY ==
--- OUTSIDE RECORDS SUMMARY | 2025-02-16 07:12 | XMS_ITS | Patient Health Record ---
Author Organization [facility] Address [address] [place] [address] Support Name Relationship Address Phone JANINE VERA Guarantor Unknown [phone] Reason For Referral No Information Medications Medication SIG (Take, Route, Fr equency, Duration) Notes Start Date End Date Status Crestor 1 ORAL daily; Duration: -3 Miguel-MJ 08/22/2012 Active PriLOSEC OTC 20MG 1 ORAL twice daily; Duration: -3 Miguel-MJ 08/15/2011 Active Multivitamins 1 ORAL daily; Duration: -3 Miguel-MJ 3 Active Problems Problem Type SNOMED Code ICD Code Onset Dates Problem Status W/U Status Risk Notes Problem Candidal vulvovaginitis (52915105) Candidiasis of vulva and vagina (112.1) Active confirmed Diag Problem Hyperlipidemia (49617732) Other and unspecified hyperlipidemia (272.4) Active confirmed Major Problem Diaphragmatic hernia (63290633) Diaphragmatic hernia without mention of obstruction or gangrene (553.3) Active confirmed Other Problem Menopausal symptom (62276010) Symptomatic menopausal or female climacteric states (627.2) Active confirmed Major Problem Gynecological examination normal (380362437049521) Routine gynecological examination (V72.31) Active confirmed Major Problem Screening for malignant neoplasm of colon (161438579) Special screening for malignant neoplasms, colon (V76.51) Active confirmed Major Plan Of Treatment No Information Insurance Providers Payer Name Payer Address Payer Phone Subscriber Number Group Number Insured Name Patient Relationship to Insured Coverage Start Date Coverage End Date [facility] [address] [place] [id number] [phone] [id number] JANINE VERA Self - patient is the insured
--- OUTSIDE RECORDS SUMMARY | 2025-02-16 07:12 | XMS_ITS | Patient Health Record ---
[facility] Address [address] [address] Care Team Providers Care Equipment Associate Name Role Phone Brian Mcdonald MD Primary Care Provider Corey Zambrano Unavailable [phone] Allergies Allergen (clinical drug ingredient) Drug/Non Drug Allergy documented on EMR Reaction Allergy Type Onset Date Status amoxicillin Amoxicillin Unknown Drug Allergy Act dylon PredniSONE Unknown Drug Allergy Active Reason For Referral No Information Medications Medication SIG (Take, Route, Frequency, Duration) Notes Start Date End Date Status Crestor 10 MG 1 tablet Orally Once a day; Duration: 30 day(s) Active Problems Problem Type SNOMED Code ICD Code Onset Dates Problem Status W/U Status Risk Notes Problem Onychomycosis (039438574) Onychomycosis (110.1) Active confirmed Problem Hammer toe (464139307) Hammer toe (735.4) Active confirmed Plan Of Treatment Pending Test Test Name Order Date X ray : Foot, right 3V 03/09/2011 Insurance Providers Payer Name Payer Address Payer Phone Subscriber Number Group Number Insured Name Patient Relationship to Insured Coverage Start Date Coverage End Date [facility] [address] [place] [address] [id number] Eunice Tubbs Self - patient is the insured Medical (General) History Medical History History ICD Code mumps measles hernia chicken pox hyperlipidemia
[2025-02-16 07:38] LABS: MANUAL DIFF FLAG NO
[2025-02-16 08:01] LABS: Hematocrit 47.0 % (37.0-47.0); Hemoglobin 15.9 g/dl (12.0-16.0); Imm Gran Abs Auto 0.03 X10*3/uL (0.00-0.03); Imm Gran Pct Auto 0.5 % (0.0-0.4); Lymphocytes Absolute Auto 2.2 X10*3/uL (1.2-4.9); Mean Corpuscular HGB Conc 33.8 g/dl (31.0-35.0); Mean Corpuscular Hemoglobin 31.9 pg (27.0-33.0); Mean Corpuscular Volume 94.2 fL (80.0-98.0); NRBC Abs Auto 0.000 X10*3/uL (0.0-0.012); NRBC Pct Auto 0.0 /100WBC (0.0-0.2); Platelet Count 197 X10*3/uL (160-400); Red Blood Count 4.99 X10*6/uL (4.20-5.50); White Blood Count 6.6 X10*3/uL (4.8-10.8)
[2025-02-18 22:04] LABS: Prot Elec - Albumin 4.1 g/dL (3.8-4.8); Prot Elec - Alpha1 0.3 g/dL (0.2-0.3); Prot Elec - Alpha2 0.8 g/dL (0.5-0.9); Prot Elec - Beta 1 0.4 g/dL (0.4-0.6); Prot Elec - Beta 2 0.3 g/dL (0.2-0.5); Prot Elec - Gamma 0.7 g/dL (0.8-1.7); Prot Elec - Total Protein 6.5 g/dL (6.1-8.1)
== END 2025-02-16 07:11 | disposition home or self-care (01) ==
LOC: HO.LAB 07:10
PROVIDERS: PCP Internal Medicine; Visit Provider Internal Medicine
DX: Z00.00 Encounter for general adult medical examination without abnormal findings (principal); Z12.12 Encounter for screening for malignant neoplasm of rectum; R77.8 Other specified abnormalities of plasma proteins; E55.9 Vitamin D deficiency, unspecified; D64.9 Anemia, unspecified; Z79.899 Other long term (current) drug therapy
CPT/HCPCS: 36415; 82306; 84165; 85025; 96127

== ENCOUNTER 2025-02-16 17:22 | Outpatient (AMB) | payer MEDICARE, SELFPAY ==
[2025-02-16 17:27] VITALS: BP 130/68; PULSE 82; RESP 18; TEMP 36.1; O2SAT 96; BMI 28.1
--- NOTE | 2025-02-16 17:29 | AM.OFFVISMDC ---
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: No Accompanied by: Self / Same As Patient Allergies amoxicillin (Amoxicillin) Allergy (Intermediate, Verified 02/16/25 17:40) HIVES penicillin V Allergy (Unknown, Verified 02/16/25 17:40) Hives prednisone (Prednisone) Adverse Reaction (Intermediate, Verified 02/16/25 17:40) ALTERED MENTAL STATUS, confusion Medication List - Last Reconciled 02/16/25 by Kateryna Rain MD atorvastatin 20 mg PO BEDTIME 90 days cholecalciferol (vitamin D3) 50 mcg PO DAILY denosumab (Prolia) 60 mg subcut [id number] losartan 25 mg PO DAILY 90 days omeprazole 20 mg PO DAILY 90 days varenicline tartrate (Chantix) 0.5 mg PO BID varenicline tartrate (Chantix) 1 mg PO BID HPI HPI Comments History of Present Illness Details The patient is a 64-year-old female presenting for a Medicare wellness exam. She received a pneumonia vaccine and Tdap vaccine last year as part of her preventative care measures. Her mammogram in May 2024 was normal, and her bone density screening revealed osteoporosis. She follows with rheumatology for her osteoporosis and is currently on Prolia every 6 months. A Pap smear was conducted in 2022, along with a biopsy, although the results of the biopsy were not discussed. A colonoscopy performed in 2016 showed a hyperplastic polyp and a tubular adenoma. [facility] Medical History (Updated 02/16/25 @ 20:37 by Kateryna Rain MD) Vitamin D deficiency Essential hypertension Hyperlipidemia Chronic GERD Tubular adenoma of colon Osteopenia Nicotine dependence, cigarettes, uncomplicated Surgical History History of total hysterectomy History of loop electrical excision procedure (LEEP) History of umbilical hernia repair History of blepharoplasty History of hammer toe correction History of tonsillectomy History of colonoscopy History of esophagogastroduodenoscopy (EGD) Family History Mother Diabetes Hypertension Father Diabetes CHF (congestive heart failure) Brother Lung cancer Brother Cirrhosis of liver Substance use disorder Social History (Updated 02/16/25 @ 17:47 by Kateryna Rain MD) Housing: House Alcohol intake: current Alcohol intake frequency: a few times a month Alcohol type: beer Patient Tobacco Use Status: Current everyday Tobacco user Tobacco use type: Cigarette Cigarette Packs Per Day: 1 Cigarettes Per Day: 10 e-Cigarette/Vaping Use: Never Used Second Hand Smoke Exposure: No service: No Current occupational status: employed Current occupational exposures/hazards: No Sexual orientation: Straight/Heterosexual Gender identity: Female Cognitive needs: No Hearing needs: No Vision needs: Yes Questionnaire Medicare Wellness Checkup [age] 65-67 What gender do you identify with?: female During the past 4 weeks, how much have you been bothered by emotional problems such as feeling anxious, depressed, irritable, sad or downhearted, and blue?: not at all During the past 4 weeks, has your physical & emotional health limited your social activities with family, friends, neighbors, or groups?: not at all During the past 4 weeks, how much bodily pain have you generally had?: very mild pain During the past 4 weeks, was someone available to help you if you needed & wanted help?: yes, as much as I wanted During the past 4 weeks, what was the hardest physical activity you could do for at least 2 minutes?: heavy Can you get to places out of walking distance without help? (For eg., can you travel alone on buses, taxis or drive your car?): Yes Can you go shopping for groceries or clothes without someone's help?: Yes Can you prepare your own meals?: Yes Can you do your housework without help?: Yes Because of any health problems, do you need the help of another person with your personal care needs such as eating, bathing, dressing or getting around the house?: No Can you handle your own money without help?: Yes During the past 4 weeks, how would you rate your health in general?: very good During the past 4 weeks how have things been going for you?: pretty well Are you having difficulties driving your car?: no Do you always fasten your seat belt when you are in a car?: yes, usually During past 4 weeks, have you been bothered by the following: never: Falling or dizzy when standing up, Sexual problems?, Trouble eating well?, Teeth or denture problems?, Problems using the telephone? and Tiredness or fatigue? Have you fallen 2 or more times in the past year?: No Are you afraid of falling?: No Are you a smoker?: yes, and I might quit During the past 4 weeks, how many drinks of wine, beer, or other alcoholic beverages did you have?: 1 drink or less per week Do you exercise for about 20 minutes 3 or more times a week?: yes, most of the time Have you been given information to help with the following?: no: Hazards in your house that might hurt you? and no: Keeping track of your medications? How often do you have trouble taking medicines the way you have been told to take them?: I always take medicine as prescribed How confident are you that you can control & manage most of your health problems?: very confident What is your race?: White Mini Mental State Exam (MMSE) Orientation What is the (year) (season) (date) (day) (month)?: year, season, date, day and month Where are we (state) (county) (town or city) (hospital) (floor)?: state, county, town or city, hospital/clinic and floor Registration Name of 3 unrelated objects clearly and slowly, then ask patient to repeat all 3 of them. (1st repeat determines score. Make sure they can repeat all three): object 1, object 2 and object 3 Attention & Calculation (CHOOSE ONE) Spell WORLD backwards (DLROW): 5 letters Recall Ask patient to repeat the 3 items from question #3.: object 1, object 2 and object 3 Language Show patient a wristwatch & ask what it is. Repeat for pencil.: watch and pencil Ask the patient to repeat the phrase 'No ifs, ands, or buts' after you.: correct Ask the patient to 'take a piece of paper with their right hand' 'fold paper in half' 'place paper on floor': take paper in right hand, fold paper in half and place paper on floor Print the sentence 'CLOSE YOUR EYES' on a piece. If patient actually closes eyes then score.: followed written direction Give patient a blank piece of paper & ask to write a sentence. Score if it contains a noun & verb.: sentence contains subject and verb Ask patient to copy figure of intersecting pentagons exactly. Score if all 10 angles & 2 intersects are included.: all 10 angles present & 2 are intersected Score Score: 30 Activity of Daily Living Bathing - sponge bath, tub bath or shower: receives no assistance (gets in/out by self, if usual bathing means Dressing - getting clothes from closets & drawers, including inner/outer garments & fasteners.: gets clothes & gets completely dressed without help Toileting - going to the 'toilet room' for urine/bowel elimination & cleaning self/arranging clothes: goes to toilet room, cleans self, arranges clothes without help Transfer: moves in & out of bed and chair without help (may use support object) Continence: has occasional 'accidents' Feeding: feeds self without help Total Score: 0 Information obtained from: patient Using telephone: independent Traveling: independent Shopping: independent Preparing meals: independent Housework: independent Taking medicine: independent Managing money: independent PHQ-9 Over the last 2 weeks, how often have you been bothered by any of the following problems? 1. Little interest or pleasure in doing things: not at all 2. Feeling down, depressed, or hopeless: not at all 3. Trouble falling or staying asleep, or sleeping too much: not at all 4. Feeling tired or having little energy: not at all 5. Poor appetite or overeating: not at all 6. Feeling bad about yourself - or that you are a failure or have let yourself or your family down: not at all 7. Trouble concentrating on things, such as reading the newspaper or watching television: not at all 8. Moving or speaking so slowly that other people could have noticed. Or the opposite - being so fidgety or restless that you have been moving around a lot more than usual: not at all 9. Thoughts that you would be better off or of hurting yourself in some way: not at all Total score: 0 Depression Screening Interpretation: Negative Depression Screening Done: Yes 07121 - PHQ-9 Billing: Yes Source: Developed by Drs. Michael Flores, Melinda Infante, Rohan Cage and colleagues, with an educational tyler from [employer]. Review of Systems Const All systems reviewed & are unremarkable except as noted in HPI and below Card Denies chest pain at rest, Denies chest pain with activity, Denies edema, Denies irregular heart rhythm, Denies claudication, Denies dyspnea, Denies dyspnea on exertion, Denies orthopnea, Denies paroxysmal nocturnal dyspnea and Denies slow heart rate Resp Denies cough, Denies dyspnea and Denies dyspnea on exertion GI Denies abdominal pain, Denies change in bowel habits, Denies excessive flatus, Denies nausea and Denies vomiting Denies urinary incontinence, Denies urinary hesitancy and Denies urinary urgency Musc Denies abnormal gait, Denies atrophy, Denies deformity and Denies limited range of motion Skin/Breast Denies bleeding lesions, Denies changing lesions and Denies rash Neuro Denies abnormal gait, Denies behavioral changes, Denies confusion and Denies lack of coordination Psych Denies behavioral changes and Denies confusion Physical Exam Vital Signs: Last Vital Signs Temp 96.9 F 02/16/25 17:27 Pulse 82 02/16/25 17:27 Resp 18 02/16/25 17:27 BP 130/68 02/16/25 17:27 Pulse Ox 96 02/16/25 17:27 Oxygen Delivery Method Room Air 02/16/25 17:27 BMI result Body Mass Index 28.1 Const General: No confusion Orientation/consciousness: patient oriented x3 and No confusion Resp Effort & Inspection: normal respiratory effort Auscultation: clear to auscultation bilaterally Cardio Jugular venous distension: no JVD Rate: regular rate Rhythm: regular rhythm Heart sounds: S1 normal heart sound present and S2 normal heart sound present Neuro General: patient oriented x3, no focal motor deficits and No confusion Romberg Test: Negative Extrem General: Yes full ROM Assessment & Plan Assessment & Plan (1) Encounter for Medicare annual wellness exam: Code(s): Z00.00 - Encounter for general adult medical examination without abnormal findings Plan The patient will continue her current regimen of Prolia every 6 months for osteoporosis management. 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 Preventative care measures, including vaccinations and screenings, should be continued as per the recommended schedule. Patient was informed and verbally consented to the use of an ambient scribe for clinic note documentation during this visit. Orders: Referrals Open Access Screening Colonoscopy Referral Z12.12 - Encounter for screening for malignant neoplasm of rectum Quality Reporting (2019) Depression/Bipolar (159/160/161/177) PHQ-9: Total score: 0 Coding Level of Care Code Medicare First (G0438) Diagnoses Encounter for Medicare annual wellness exam Z00.00 CPT Codes Advance Care Planning - Time spent: 1-15 minutes, on File ([id number]) Additional Codes PHQ-9 - 13019 - PHQ-9 Billing: Yes ([id number]) Time Spent (min) 33 Advance Care Planning Advance Care Planning discussion: Exists, not on file Date of discussion: 02/16/25 Who was present: patient and me Forms completed: Health Care Proxy Time spent: 1-15 minutes, on File Actual minutes spent: 1
== END 2025-02-16 17:58 | disposition home or self-care (01) ==
LOC: HO.HMCH 17:22
PROVIDERS: PCP Internal Medicine; Visit Provider Internal Medicine
DX: Z00.00 Encounter for general adult medical examination without abnormal findings (principal)

== ENCOUNTER 2025-05-06 14:56 | Outpatient (AMB) | payer MEDICARE, SELFPAY ==
[2025-05-06 15:00] VITALS: BP 130/86; PULSE 99; BMI 28.3
--- NOTE | 2025-05-06 15:00 | MHC.OFFVIS ---
Vital Signs 05/06/25 15:00 Height 5 ft 9 in Weight 191 lb 12.835 oz BMI 28.3 BP 130/86 Blood Pressure Location Lt brachial Position Sitting Pulse 99 Intake Visit Reasons: colo screen Intake Note: Eunice presents in the office as a colonoscopy screening. CC: Allergies amoxicillin (Amoxicillin) Allergy (Intermediate, Verified 05/06/25 15:06) HIVES penicillin V Allergy (Unknown, Verified 05/06/25 15:06) Hives prednisone (Prednisone) Adverse Reaction (Intermediate, Verified 05/06/25 15:06) ALTERED MENTAL STATUS, confusion Medication List - Last Reconciled 05/06/25 by Lazara Kent CNP atorvastatin 20 mg PO BEDTIME 90 days cholecalciferol (vitamin D3) 50 mcg PO DAILY denosumab (Prolia) 60 mg subcut [id number] losartan 25 mg PO DAILY 90 days omeprazole 20 mg PO DAILY 90 days varenicline tartrate (Chantix) 1 mg PO BID varenicline tartrate (Chantix) 0.5 mg PO BID 30 days HPI HPI colo screen: Details: Patient is a 64-year-old female with PMH of nicotine dependence, hypertension, hyperlipidemia, vitamin-D deficiency. Referred by PCP for pre colonoscopy screening. Prior colonoscopy 2017 with findings of diverticulosis and polypectomy (three benign and one precancerous polyp). Eunice reports daily bowel movements without complaints of constipation, diarrhea, or blood in stools. Denies abdominal pain, nausea, or vomiting. Notes a stable weight, except for some intentional weight fluctuation related to dieting. Appetite is robust. Has a history of acid reflux controlled with omeprazole every other day for two years; is contemplating spacing dosing due to concern for long-term side effects. Experiences occasional reflux symptoms triggered by certain foods when omeprazole is missed, otherwise well managed. No significant non-GI symptoms reported. No personal or first-degree family history of GI malignancy. Patient denies: fever/chills, n/v, appetite changes, regurgitation, dysphasia, unintentional wt loss, ab pain or melena/hematochezia. Social hx: -ETOH use, Rare, ~12 beers/year plus occasional mixed drinks at events. -denies recreational drug use - Current smoker, ~12 cigarettes/day, prescribed Chantix. - family hx as below -denies personal hx of CA -denies significant cardiopulmonary history -tolerated anesthesia in the past without difficulty. [facility] Medical History (Updated 05/06/25 @ 15:30 by Lazara Kent CNP) Colon cancer screening Vitamin D deficiency Essential hypertension Hyperlipidemia Chronic GERD Tubular adenoma of colon Osteopenia Nicotine dependence, cigarettes, uncomplicated Surgical History History of total hysterectomy History of loop electrical excision procedure (LEEP) History of umbilical hernia repair History of blepharoplasty History of hammer toe correction History of tonsillectomy History of colonoscopy History of esophagogastroduodenoscopy (EGD) Family History Mother Diabetes Hypertension Father Diabetes CHF (congestive heart failure) Brother Lung cancer Brother Cirrhosis of liver Substance use disorder Social History Housing: House Alcohol intake: current Alcohol intake frequency: a few times a month Alcohol type: beer Patient Tobacco Use Status: Current everyday Tobacco user Tobacco use type: Cigarette Cigarette Packs Per Day: 1 Cigarettes Per Day: 10 e-Cigarette/Vaping Use: Never Used Second Hand Smoke Exposure: No service: No Current occupational status: employed Current occupational exposures/hazards: No Sexual orientation: Straight/Heterosexual Gender identity: Female Cognitive needs: No Hearing needs: No Vision needs: Yes Review of Systems Const Reports as per HPI ENT Reports as per HPI Card Reports as per HPI Resp Reports as per HPI GI Reports as per HPI Reports as per HPI Physical Exam Vital Signs: Last Vital Signs Pulse 99 05/06/25 15:00 BP 130/86 05/06/25 15:00 BMI result Body Mass Index 28.3 Const General: healthy appearing, no acute distress and well developed Nutritional Appearance: average body habitus Orientation/consciousness: patient oriented x3 HEENT Head: Yes normal to inspection, Yes normocephalic and Yes atraumatic Face and sinus: Yes normal facial exam Eyes General: appearance normal, both eyes and all related structures Neck Neck: Yes normal visual inspection Resp Effort & Inspection: normal respiratory effort, able to speak in complete sentences, no tracheal deviation and symmetric chest movement Cardio Jugular venous distension: no JVD GI Inspection: Yes normal to inspection Neuro General: patient oriented x3 Gait exam (Neuro): Normal gait present Psych Appearance: grossly normal Mental Status: mental status grossly normal Speech and movement: Normal speech and movement present Affect: normal affect Attitude: cooperative Thought process: Normal thought process present Thought content: Normal thought content present Insight: Good insight present (Psych) Judgement: Good judgement present (Psych) Assessment & Plan Assessment & Plan (1) Tubular adenoma of colon: Comment: 01/23/2017 colonoscopy (Dr. Conrad) complete with fair to good prep-Diverticulosis, Polyps: A. HP (at 25 cm), B. TA (rectum), C. HP X 2 (rectum). Recommended for repeat in 5 years. Code(s): D12.6 - Benign neoplasm of colon, unspecified Category: Medical Plan: Meets guideline criteria for surveillance colonoscopy based on prior advanced polyp removal and diverticulosis. Additional Testing: Colonoscopy scheduled; no other immediate testing indicated given asymptomatic status and negative interval stool screening. Medication Management: None indicated for colonic pathology at this time. Lifestyle Recommendations: Continue efforts in weight management as appropriate; maintain clear liquid diet as instructed pre-procedure. Follow-Up: Arrange post-colonoscopy visit to review pathology and surveillance intervals. (2) Chronic GERD: Code(s): K21.9 - Gastro-esophageal reflux disease without esophagitis Category: Medical Plan: History of chronic reflux, well controlled on current regimen. Additional Testing: Upper endoscopy (EGD) recommended given chronic PPI use, duration >2 yrs, and ongoing need for therapy; patient prefers procedure on separate day from colonoscopy. Medication Management: Continue omeprazole every other day; patient may trial every 3rd day if symptoms remain controlled. Multivitamin use appropriate; continue Vitamin D3. Lifestyle Recommendations: Ongoing weight management may allow for further reduction in PPI needs; avoid known dietary triggers; minimize tobacco use. Follow-Up: Reassess GERD management at next visit and after EGD. Plan Follow-up after colonoscopy or sooner as needed Time: I spent a total of 30 minutes on the date of encounter which includes: Preparing to see the patient (reviewed previous documentation, test results and medical history) Performing a medically appropriate exam and/or evaluation Ordering medications, tests, and procedures Documenting clinical information in the health record Orders: Referrals GI Procedure Notification D12.6 - Benign neoplasm of colon, unspecified, Z12.11 - Encounter for screening for malignant neoplasm of colon Medications: New polyethylene glycol 3350 (Miralax) per colonoscopy prep instructions 238 grams PO ONCE 238 grams 0RF bisacodyl Take per colonoscopy instructions 20 mg (4 x 5 mg) PO ONCE 4 tabs 0RF Coding Level of Care Code New Pt New Pt Level 3 (05568) Patient Type New Diagnoses Tubular adenoma of colon D12.6 Chronic GERD K21.9
--- OUTSIDE RECORDS SUMMARY | 2025-05-06 18:02 | XMS_ITS | Patient Health Record ---
Author Organization [facility] Address [address] [place] [address] Support Name Relationship Address Phone JANINE VERA Guarantor Unknown [phone] Reason For Referral No Information Medications Medication [...] W/U Status Risk Notes Problem Candidal vulvovaginitis (38273044) Candidiasis of vulva and vagina (112.1) Active confirmed Diag Problem Hyperlipidemia (91402508) Other and unspecified hyperlipidemia (272.4) Active confirmed Major Problem Diaphragmatic hernia (23368640) Diaphragmatic hernia without mention of obstruction or gangrene (553.3) Active confirmed Other Problem Menopausal symptom (37134411) Symptomatic menopausal or female climacteric states (627.2) Active confirmed Major Problem Gynecological examination normal (464069087027945) Routine gynecological examination (V72.31) Active confirmed Major Problem Screening for malignant neoplasm of colon (583739552) Special screening for malignant neoplasms, colon (V76.51) Active confirmed Major Plan Of Treatment No Information Insurance Providers Payer Name Payer Address Payer Phone Subscriber Number Group Number Insured Name Patient Relationship to Insured Coverage Start Date Coverage End Date [facility] [address] [facility] [id number] [phone] [id number] JANINE VERA Self - patient is the insured
--- OUTSIDE RECORDS SUMMARY | 2025-05-06 18:03 | XMS_ITS | Patient Health Record ---
[facility] Address [address] [place] [address] Care Team Providers Care Assistant Professor Of Forestry Name Role Phone Brian Mcdonald MD Primary Care Provider Corey Bustamante Unavailable [phone] Allergies Allergen (clinical drug ingredient) Drug/Non Drug [...] Status W/U Status Risk Notes Problem Onychomycosis (335284320) Onychomycosis (110.1) Active confirmed Problem Hammer toe (930663659) Hammer toe (735.4) Active confirmed Plan Of Treatment Pending Test Test Name Order Date X ray : Foot, right 3V 03/09/2011 Insurance Providers Payer Name Payer Address Payer Phone Subscriber Number Group Number Insured Name Patient Relationship to Insured Coverage Start Date Coverage End Date [facility] [address] [facility] [id number] [phone] [id number] Eunice Tubbs Self - patient is the insured Medical (General) History Medical History History ICD Code mumps measles hernia chicken pox hyperlipidemia
== END 2025-05-06 15:32 | disposition home or self-care (01) ==
LOC: HO.HGI 14:57
PROVIDERS: PCP Internal Medicine; Visit Provider Nurse Practitioner Family
DX: D12.6 Benign neoplasm of colon, unspecified (principal); K21.9 Gastro-esophageal reflux disease without esophagitis
CPT/HCPCS: 99203

== ENCOUNTER → 2025-05-06 14:56 | Outpatient (BNVA) | payer MEDICARE, SELFPAY | PROVIDERS: PCP Internal Medicine; Visit Provider Nurse Practitioner Family | DX: K21.9 Gastro-esophageal reflux disease without esophagitis (principal); D12.6 Benign neoplasm of colon, unspecified; Z72.0 Tobacco use; I10 Essential (primary) hypertension; E78.5 Hyperlipidemia, unspecified | CPT/HCPCS: 99202 ==

== ENCOUNTER 2025-06-13 09:25 | Outpatient (REF) | payer MEDICARE, SELFPAY ==
--- OUTSIDE RECORDS SUMMARY | 2025-06-13 09:28 | XMS_ITS | Patient Health Record ---
Author Organization [facility] Address [address] [place] [address] Support Name Relationship Address Phone JANINE VERA Guarantor Unknown [phone] Reason For Referral No Information Medications Medication [...] W/U Status Risk Notes Problem Candidal vulvovaginitis (86206833) Candidiasis of vulva and vagina (112.1) Active confirmed Diag Problem Hyperlipidemia (62608361) Other and unspecified hyperlipidemia (272.4) Active confirmed Major Problem Diaphragmatic hernia (96773518) Diaphragmatic hernia without mention of obstruction or gangrene (553.3) Active confirmed Other Problem Menopausal symptom (15362939) Symptomatic menopausal or female climacteric states (627.2) Active confirmed Major Problem Gynecological examination normal (531728453296428) Routine gynecological examination (V72.31) Active confirmed Major Problem Screening for malignant neoplasm of colon (843926151) Special screening for malignant neoplasms, colon (V76.51) Active confirmed Major Plan Of Treatment No Information Insurance Providers Payer Name Payer Address Payer Phone Subscriber Number Group Number Insured Name Patient Relationship to Insured Coverage Start Date Coverage End Date [facility] [address] [facility] [id number] [phone] [id number] JANINE VERA Self - patient is the insured
--- OUTSIDE RECORDS SUMMARY | 2025-06-13 09:29 | XMS_ITS | Patient Health Record ---
[facility] Address [address] [facility] [place] [address] Care Team Providers Care Commuter Train Operator Name Role Phone Brian Mcdonald MD Primary Care Provider Corey Bustamante Unavailable [phone] Allergies Allergen (clinical drug ingredient) Drug/Non Drug [...] Status W/U Status Risk Notes Problem Onychomycosis (783219094) Onychomycosis (110.1) Active confirmed Problem Hammer toe (413418157) Hammer toe (735.4) Active confirmed Plan Of Treatment Pending Test Test Name Order Date X ray : Foot, right 3V 03/09/2011 Insurance Providers Payer Name Payer Address Payer Phone Subscriber Number Group Number Insured Name Patient Relationship to Insured Coverage Start Date Coverage End Date [facility] [address] [facility] [place] [phone] [id number] Eunice Tubbs Self - patient is the insured Medical (General) History Medical History History ICD Code mumps measles hernia chicken pox hyperlipidemia
[2025-06-13 10:55] LABS: Alanine Aminotransferase 23 U/L (0-31); Albumin Level 4.7 g/dL (3.5-5.0); Alkaline Phosphatase 83 U/L (39-117); Anion Gap 10 (12-20); Aspartate Amino Transferase 25 U/L (5-31); Blood Urea Nitrogen 17 mg/dL (9-16); Calcium 9.7 mg/dL (8.4-10.2); Carbon Dioxide 27 mmol/L (22-29); Chloride 107 mmol/L (96-108); Estimated Glomerular Filt Rate > 60; Potassium 4.0 mmol/L (3.3-5.1); Sodium 140 mmol/L (135-145); Total Protein 7.1 g/dL (6.5-8.0)
== END 2025-06-13 09:26 | disposition home or self-care (01) ==
LOC: HO.LAB 09:25
PROVIDERS: PCP Internal Medicine; Visit Provider Student in an Organized Health Care Education/Training Program
DX: M81.0 Age-related osteoporosis without current pathological fracture (principal)
CPT/HCPCS: 36415; 80053; 82306

== ENCOUNTER 2025-06-16 08:48 | Outpatient (AMB) | payer MEDICARE, SELFPAY ==
--- NOTE | 2025-06-16 08:51 | A.OFFVIS_ITS ---
Vital Signs 06/16/25 08:56 Height 5 ft 9 in Weight 197 lb 1.492 oz BMI 29.1 BP 132/90 H Blood Pressure Location Lt brachial Position Sitting Pulse 90 Pulse Source Pulse Oximeter Pulse Oximetry (%) 98 Oxygen Delivery Method Room Air Intake Visit Reasons: osteoporosis/ prolia inj Intake Note: Patient presents today for Osteoporosis/Prolia injection follow up and test results. Shopping Investigator Required: No Information Interpreted: non-clinical & clinical Accompanied by: Self / Same As Patient Allergies amoxicillin (Amoxicillin) Allergy (Intermediate, Verified 06/16/25 08:55) HIVES penicillin V Allergy (Unknown, Verified 06/16/25 08:55) Hives prednisone (Prednisone) Adverse Reaction (Intermediate, Verified 06/16/25 08:55) ALTERED MENTAL STATUS, confusion HPI Comments Details: Patient is a 65-year-old female with hypertension and hyperlipidemia who presents for follow up of osteoporosis Interval History: Patient last seen 12/24/24 with me. - On Prolia 60mg SC every 6 months - Continues to do well - Denies any falls or fractures Today - On Prolia 60mg SC every 6 months - Doing well - Planning to go back to [place] in July after holidays Rheumatologic History: Osteoporosis. Started prolia 06/2024 Risk Factor Assessment: ? Age: 63 years ? Race: ? Menarche: 14 years - 40 years (early menopause) ? Family history including hip fracture: mom with osteoporosis, no hip fracture ? Low calcium/vitamin-D intake: Has good dairy intake, no vit D supplementation ? Estrogen deficiency: none ? Sedentary lifestyle: currently joined [employer] ? Cigarette smokin cigarrettes/ day since 15 years old. 24 pack years ? Excessive alcohol: no EtOh ? Excessive caffeine: drinks 1-2 cups of coffee High-risk medication assessment: ? Glucocorticoids: has a history of short course for allergic reaction ? Excess thyroid hormone: none No history of breast cancer No history of falls and no subsequent fractures Current Rheumatology Medication(s): Prolia 60mg SC every 6 months [facility] Medical History (Updated 06/16/25 @ 09:15 by Tosha Gan MD) Colon cancer screening Vitamin D deficiency Essential hypertension Hyperlipidemia Chronic GERD Tubular adenoma of colon Osteopenia Nicotine dependence, cigarettes, uncomplicated Surgical History History of total hysterectomy History of loop electrical excision procedure (LEEP) History of umbilical hernia repair History of blepharoplasty History of hammer toe correction History of tonsillectomy History of colonoscopy History of esophagogastroduodenoscopy (EGD) Family History Mother Diabetes Hypertension Father Diabetes CHF (congestive heart failure) Brother Lung cancer Brother Cirrhosis of liver Substance use disorder Social History Housing: House Alcohol intake: current Alcohol intake frequency: a few times a month Alcohol type: beer Patient Tobacco Use Status: Current everyday Tobacco user Tobacco use type: Cigarette Cigarette Packs Per Day: 1 Cigarettes Per Day: 10 e-Cigarette/Vaping Use: Never Used Second Hand Smoke Exposure: No service: No Current occupational status: employed Current occupational exposures/hazards: No Sexual orientation: Straight/Heterosexual Gender identity: Female Cognitive needs: No Hearing needs: No Vision needs: Yes Review of Systems Narrative Review of Systems Constitutional: Denies fever, chills, weight loss ENT: Denies vision changes, eye pain or eye redness, dental caries, dry mouth GI: Denies nausea, vomiting, diarrhea, abdominal pain, change in BM Pulm: Denies SOB, [place], hemoptysis, wheezing Cards: Denies chest pain, palpitations Skin: Denies Raynaud's, rash, nail changes, photosensitivity, ADVANCED PRACTICE REGISTERED NURSE: Denies headaches, weakness, paresthesias, recurrent falls MSK: as per HPI All other systems reviewed and are unremarkable except noted above Physical Exam Exam Exam: Vital signs reviewed Physical Examination CONSTITUITIONAL Patient alert and cooperative. Well appearing and in no apparent painful distress MSK Hands * Right Hand: Able to make a fist. No swelling or tenderness to palpation of the MCPs, PIPs or DIPs. * Left Hand: Able to make a fist. No swelling or tenderness to palpation of the MCPs, PIPs or DIPs. * Herbedens nodes noted bilaterally Wrists * Right Wrist: Full ROM to flexion and extension. No swelling or TTP * Left Wrist: Full ROM to flexion and extension. No swelling or TTP Elbows * Right Elbow: Full ROM. No swelling or TTP. No TTP of the medial epicondyle. No TTP of the lateral epicondyle * Left Elbow: Full ROM. No swelling or TTP. No TTP of the medial epicondyle. No TTP of the lateral epicondyle Shoulders * Right shoulder: Full ROM. No swelling noted. No TTP of the AC joint. No TTP of the subacromial bursa. No TTP of the posterior shoulder * Left shoulder: Full ROM. No swelling noted. No TTP of the AC joint. No TTP of the subacromial bursa. No TTP of the posterior shoulder Knees * Right knee: Full ROM. No swelling noted. No TTP of the knee joint line. No TTP of pes anserine bursa * Left knee: Full ROM. No swelling noted. No TTP of the knee joint line. No TTP of pes anserine bursa. Ankles * Right ankle: Good ankle dorsiflexion and plantar flexion. No swelling. No TTP of the ankle joint * Left ankle: Good ankle dorsiflexion and plantar flexion. No swelling. No TTP of the ankle joint Feet * Right foot: Negative squeeze test * Left foot: Negative squeeze test Tender points? * No tenderness to palpation of the bilateral trapezius, supraspinatus, anterior costochondral junctions, bilateral suboccipital muscle insertions SKIN No rashes Vital Signs: Last Vital Signs Pulse 90 06/16/25 08:56 BP 132/90 H 06/16/25 08:56 Pulse Ox 98 06/16/25 08:56 Oxygen Delivery Method Room Air 06/16/25 08:56 BMI result Body Mass Index 29.1 Results Reviewed Results Reviewed: Laboratory Tests 06/14/24 12/15/24 11:23 08:01 WBC 7.0 RBC 4.94 Hgb 16.0 Hct 47.5 H Plt Count 207 Sodium 143 Potassium 4.7 D Chloride 108 Carbon Dioxide 26 BUN 16 Creatinine 0.94 AST 26 ALT 22 Alkaline Phosphatase 75 Total Protein 7.0 Albumin 4.6 Collgn I C-Telopeptide 194 179 25-OH Vitamin D Total 42 Laboratory Tests 06/13/25 09:38 Sodium 140 Potassium 4.0 Chloride 107 Carbon Dioxide 27 BUN 17 H Creatinine 0.90 AST 25 ALT 23 25-OH Vitamin D Total 48.3 DEXA 05/2024 FINDINGS: LEFT FEMUR, NECK: Current: BMD 0.936 g/cm2, Z-score 0.2, T-score -0.7, normal. Prior: BMD 1.019 g/cm2. Baseline: BMD 0.965 g/cm2. LEFT FEMUR, TOTAL: Current: BMD 1.002 g/cm2, Z-score 0.6, T-score 0.0, normal, 1.1% decrease from previous, 2.5% increase from baseline (<5% change is not significant). Prior: BMD 1.013 g/cm2. Baseline: BMD 0.978 g/cm2. AP SPINE L1-L2 (excluding L3 and L4): The data of L1-L4 has been changed to exclude the L3 and L4 vertebral bodies, because significant degenerative change at these levels may cause overestimation of lumbar spine density. Current: BMD 0.816 g/cm2, Z-score -2.2, T-score -2.9, osteoporosis, 15.9% decrease from previous, 20.8% decrease from baseline (<5% change is not significant). Prior: BMD 0.970 g/cm2. Baseline: BMD 1.030 g/cm2. Assessment & Plan Assessment & Plan (1) Osteoporosis: Comment: DEXA 06/2024. AP spine -2.9, Left femur neck -0.7, Left femur total 0.0 Prolia 06/2024 Code(s): M81.0 - Age-related osteoporosis without current pathological fracture Category: Medical Qualifiers: Osteoporosis type: age-related Presence of current pathological fracture: without current pathological fracture Qualified Code(s): M81.0 - Age- related osteoporosis without current pathological fracture Plan: #Osteoporosis of the spine Patient is a 65 year old female with severe osteoporosis of the spine. No history of fractures. Has a history of GERD and other stomach issues. Tolerating prolia. Continue with Prolia Plan - Prolia SC every 6 months - Weight bearing exercises - Vit D supplementation - DEXA 06/2026 - RTC 6 months - Labs before visit: CMP, Vit D (2) Encounter for monitoring denosumab therapy: Code(s): Z51.81 - Encounter for therapeutic drug level monitoring; Z79.620 - senior living (current) use of immunosuppressive biologic Category: Medical Plan: #Long-term use of Denosumab Discussed with patient the risks and benefits of denosumab (Prolia) for the management of their osteoporosis Benefits include improved bone density, decreased fracture risk Risks include rapid bone loss if denosumab stopped, osteonecrosis of the jaw especially in patients with poor oral hygiene/diabetes/use of glucocorticoids/age greater than 65 years, atypical femoral fractures, injection site reactions. Mild increased risk of infections due to RANKL on T helper cells, increased risk of hypocalcemia especially in CKD patients Keep vitamin-D at least 35 ng/mL Advised to delay non emergent dental procedures to toward the end of the 6 month cycle and if they plan to stop denosumab would need to continue antiresorptive to maintain the effects of denosumabe Plan I spent 20 minutes reviewing the record and labs, seeing the patient, discussing the treatment plan and documenting in the medical record Orders: Orders AMB Denosumab Injection Patient Supplied Today M81.0 - Age-related osteoporosis without current pathological fracture Medications: New Prolia (denosumab) 60 mg subcut ONCE 1 mL 0RF NS M81.0 - Age-related osteoporosis without current pathological fracture Coding Level of Care Code Est Pt Level 3 (60329) Add On Problem Visit Only Diagnoses Age-related osteoporosis without current pathological fracture M81.0 Osteoporosis type: age-related Presence of current pathological fracture: without current pathological fracture Encounter for monitoring denosumab therapy Z51.81; Z79.620
[2025-06-16 08:56] VITALS: BP 132/90; PULSE 90; O2SAT 98; BMI 29.1
--- OUTSIDE RECORDS SUMMARY | 2025-06-16 09:34 | XMS_ITS | Patient Health Record ---
Author Organization [facility] Address [address] [place] [address] Support Name Relationship Address Phone JANINE VERA Guarantor Unknown [phone] Reason For Referral No Information Medications Medication [...] W/U Status Risk Notes Problem Candidal vulvovaginitis (64507643) Candidiasis of vulva and vagina (112.1) Active confirmed Diag Problem Hyperlipidemia (80800841) Other and unspecified hyperlipidemia (272.4) Active confirmed Major Problem Diaphragmatic hernia (85476297) Diaphragmatic hernia without mention of obstruction or gangrene (553.3) Active confirmed Other Problem Menopausal symptom (09682042) Symptomatic menopausal or female climacteric states (627.2) Active confirmed Major Problem Gynecological examination normal (886778484644210) Routine gynecological examination (V72.31) Active confirmed Major Problem Screening for malignant neoplasm of colon (529297818) Special screening for malignant neoplasms, colon (V76.51) Active confirmed Major Plan Of Treatment No Information Insurance Providers Payer Name Payer Address Payer Phone Subscriber Number Group Number Insured Name Patient Relationship to Insured Coverage Start Date Coverage End Date [facility] [address] [place] [phone] [id number] JANINE VERA Self - patient is the insured
--- OUTSIDE RECORDS SUMMARY | 2025-06-16 09:34 | XMS_ITS | Patient Health Record ---
[facility] Address [address] [place] [address] Care Team Providers Care Vocational Aide Name Role Phone Brian Mcdonald MD Primary Care Provider Corey Bustamante Unavailable [phone] Allergies Allergen (clinical drug ingredient) Drug/Non Drug [...] Status W/U Status Risk Notes Problem Onychomycosis (996744215) Onychomycosis (110.1) Active confirmed Problem Hammer toe (113833398) Hammer toe (735.4) Active confirmed Plan Of Treatment Pending Test Test Name Order Date X ray : Foot, right 3V 03/09/2011 Insurance Providers Payer Name Payer Address Payer Phone Subscriber Number Group Number Insured Name Patient Relationship to Insured Coverage Start Date Coverage End Date [facility] [address] [facility] [phone] [id number] Eunice Tubbs Self - patient is the insured Medical (General) History Medical History History ICD Code mumps measles hernia chicken pox hyperlipidemia
== END 2025-06-16 09:15 | disposition home or self-care (01) ==
LOC: HO.RHES 08:49
PROVIDERS: PCP Internal Medicine; Visit Provider Student in an Organized Health Care Education/Training Program
DX: M81.0 Age-related osteoporosis without current pathological fracture (principal); Z51.81 Encounter for therapeutic drug level monitoring; Z79.620 Long term (current) use of immunosuppressive biologic
CPT/HCPCS: 99213; G2211

== ENCOUNTER → 2025-06-16 08:48 | Outpatient (BNVA) | payer MEDICARE, SELFPAY | PROVIDERS: PCP Internal Medicine; Visit Provider Student in an Organized Health Care Education/Training Program | DX: M81.0 Age-related osteoporosis without current pathological fracture (principal); Z51.81 Encounter for therapeutic drug level monitoring; Z79.620 Long term (current) use of immunosuppressive biologic | CPT/HCPCS: 96372; 99212; J0897 ==